=== PATIENT | male | born 1950 | race Caucasian/White ===

== ENCOUNTER 2017-06-06 08:43 | Inpatient (IN) | payer BC, OTHER ==
[2017-05-04 12:27] VITALS: BMI 31.0
--- NOTE | 2017-05-04 13:09 | PAT Medication Instructions ---
Service Date May 04, 2017. Current Home Medication List Amitriptyline Hcl (Elavil), 200 MG PO QPM Aspirin (Aspirin Ec), 81 MG PO QAM Cholecalciferol (Vitamin D3), 400 UNITS PO QAM Cyanocobalamin (Vitamin B12), 1,000 MCG PO QAM Digoxin (Digoxin), 250 MCG PO QAM Docusate Sodium (Docusate Sodium), 3 CAP PO QAM Fish Oil ([place]-3), 1,200 MG PO QAM Hydrocodon/Acetaminophen 5MG/300MG (Vicodin (5MG/300MG)), 1 TAB PO Q4H PRN for N Lisinopril (Zestril), 20 MG PO AM/HS Lorazepam (Ativan), 0.5 MG PO PRN Metoprolol Succ (Toprol Xl) (Toprol-Xl), 50 MG PO BID Psyllium (Metamucil), 1 DOSE PO QAM Red Yeast Rice Extract (Red Yeast Rice), 1,200 MG PO QAM Tadalafil (Cialis), 10 MG PO UD PRN for PRN Terazosin Hcl (Hytrin), 2 MG PO QPM Thiamine Hcl (Vitamin B1), 250 MG PO QAM [Folic Acid], 400 MG PO QAM Medication Instructions For Your Scheduled Surgery - Hold the following medications 2 weeks prior to surgery: Fish Oil ([place]-3), 1,200 MG PO QAM Red Yeast Rice Extract (Red Yeast Rice), 1,200 MG PO QAM - Hold the following medications 24 hours prior to surgery: Lisinopril (Zestril), 20 MG PO AM/HS-- do not take the night before or the morning of surgery - Hold the following medications the morning of surgery: Cholecalciferol (Vitamin D3), 400 UNITS PO QAM Cyanocobalamin (Vitamin B12), 1,000 MCG PO QAM Docusate Sodium (Docusate Sodium), 3 CAP PO QAM Psyllium (Metamucil), 1 DOSE PO QAM Thiamine Hcl (Vitamin B1), 250 MG PO QAM [Folic Acid], 400 MG PO QAM Tadalafil (Cialis), 10 MG PO UD PRN for PRN - Take the following medications the morning of surgery with a sip of water: Aspirin (Aspirin Ec), 81 MG PO QAM Digoxin (Digoxin), 250 MCG PO QAM Hydrocodon/Acetaminophen 5MG/300MG (Vicodin (5MG/300MG)), 1 TAB PO Q4H PRN (if needed, can be taken up to four hours before surgery) Lorazepam (Ativan), 0.5 MG PO PRN (if needed) Metoprolol Succ (Toprol Xl) (Toprol-Xl), 50 MG PO BID - Take the following medications as scheduled the night before surgery: Amitriptyline Hcl (Elavil), 200 MG PO QPM Hydrocodon/Acetaminophen 5MG/300MG (Vicodin (5MG/300MG)), 1 TAB PO Q4H PRN (if needed) Lorazepam (Ativan), 0.5 MG PO PRN (if needed) Metoprolol Succ (Toprol Xl) (Toprol-Xl), 50 MG PO BID Tadalafil (Cialis), 10 MG PO UD PRN for PRN (if needed) Terazosin Hcl (Hytrin), 2 MG PO QPM If you have any questions please call us at [phone] or [phone] or [phone]
[2017-05-04 13:56] LABS: BASO % 0.4 %; BASO ABS # 0.02 K/uL (0-0.2); EOS % 3.9 %; EOS ABS # 0.18 K/uL (0-0.5); HEMATOCRIT 43.5 % (42-52); IG# 0.02 K/uL (0.00-0.02); LYMPH % 19.1 %; LYMPH ABS # 0.87 K/uL (1.2-3.4); MEAN CELL VOLUME 84.5 fL (80-100); MEAN CORPUSCULAR HEMOGLOBIN 29.1 pg (25-34); MEAN CORPUSCULAR HGB CONC 34.5 g/dl (32-36); MEAN PLATELET VOLUME 9.4 fL (7.4-10.4); MONO % 9.9 %; MONO ABS # 0.45 K/uL (0.11-0.59); NEUT % 66.3 %; NEUT ABS # 3.02 K/uL (1.4-6.5); PLATELET COUNT 155 K/uL (130-400); RED CELL DISTRIBUTION WIDTH CV 13.4 % (11.5-14.5); RED CELL DISTRIBUTION WIDTH SD 41.4 fL (36.4-46.3); WHITE BLOOD COUNT 4.56 K/uL (4.8-10.8)
--- NOTE | 2017-05-04 14:07 | DIAGNOSTIC IMAGING REPORT ---
CHEST 2 VIEWS ROUTINE CLINICAL HISTORY: pat preoperative evaluation COMPARISON STUDY: No previous studies for comparison. FINDINGS: The bones soft tissues and hemidiaphragms are normal. The cardiomediastinal silhouette is normal. The lungs are clear. The pulmonary vasculature is normal. IMPRESSION: Negative chest. The above report was generated using voice recognition software. It may contain grammatical, syntax or spelling errors. Electronically signed by: Rich Weir M.D. 05/04/2017 2:05 PM Dictated Date/Time: 05/04/2017 1:56 PM
[2017-05-04 17:02] LABS: CALCIUM 8.8 mg/dl (8.5-10.1); CREATININE 0.93 mg/dl (0.60-1.40); POTASSIUM 4.3 mmol/L (3.5-5.1)
[2017-06-06] VITALS (8 sets, daily range): BP systolic 124–173; BP diastolic 55–95; PULSE 73–103; TEMP 36.5–37.1; O2SAT 93–98; Ht 185.4 cm; Wt 107.9 kg
[~2017-06-06] VITALS: Ht 185.4 cm; Wt 107.9 kg
[~2017-06-06 08:43] MED LIST: ACETAMINOPHEN 500 MG TAB PO SCH; AMT50 PO; ASPI81TA28 PO; CEFAZOLIN 2000MG IV PUSH 15 ML IV SCH; CHOL400T PO; CLINDAMYCIN 600 MG/54 ML D5W 54 ML IV SCH; CYAN100020 PO; CeleBREX 200 MG CAP PO SCH; DOCU100C31 PO; FOLIC ACID PO; GABAPENTIN 300 MG CAP PO SCH; GENERAL ORDER PROBLEM SCH; HYDR-3419 PO; HYT/2 PO; LACTATED RINGER'S 1000ML IV SCH; LISI-725 PO; LNX25 PO; LORA-741 PO; METO50TA8 PO; OMEG10007 PO; PSYL48.59 PO; REDCAP2 PO; TADA10TA PO; THIA250T7 PO
[2017-06-06] MEDS ORDERED: GABAPENTIN 300 MG CAP PO ONE (09:27)
[2017-06-06] MEDS ORDERED: SENN-65 PO (09:30)
[2017-06-06] MEDS ORDERED: NURSING VERBAL MED ORDER STA (09:30)
[2017-06-06] MEDS ORDERED: MIDAZOLAM HCL 1 MG/ML 2ML VIAL ONE (11:25)
[2017-06-06] MEDS ORDERED: FENTANYL CITRATE INJ 50 MCG/1 ML 2 ML VIAL ONE ×3 (11:25→13:55)
--- NOTE | 2017-06-06 11:52 | History & Physical Bridge Note ---
H&P Re-Evaluation Bridge Note: I have examined the patient, reviewed the History & Physical and in the interval since the performance of the History & Physical I have noted the following changes of clinical significance: No changes noted
[2017-06-06] MEDS ORDERED: BUPIVACAINE/EPINEPHRINE 0.5% MPF 1:200,000 30 ML VIAL ONE (11:54)
[2017-06-06] MEDS ORDERED: BACITRACIN 50000 UNIT VIAL ONE (11:54)
--- NOTE | 2017-06-06 11:55 | History and Physical ---
History & Physical Date Jun 06, 2017. Chief Complaint Back and leg pain History of Present Illness The patient is a 67 year old male with complaints of back and leg pain Additional History Hepatic Disease: No Endocrine Disorder: No Kidney Disease: No Hypertension: Yes Heart Disease: No Bleeding Tendencies: No Infectious Diseases: No Allergies Coded Allergies: Azithromycin (Unverified Allergy, Unknown, UNKNOWN REACTION, 06/06/17) PER CARDIO RECORDS Verapamil (Unverified Allergy, Unknown, UNKNOWN REACTION, 06/06/17) PER CARDIO RECORDS Home Medications Scheduled Amitriptyline Hcl (Elavil), 200 MG PO QPM Aspirin (Aspirin Ec), 81 MG PO QAM Cholecalciferol (Vitamin D3), 400 UNITS PO QAM Cyanocobalamin (Vitamin B12), 1,000 MCG PO QAM Digoxin (Digoxin), 250 MCG PO QAM Fish Oil ([place]-3), 1,200 MG PO QAM Lisinopril (Zestril), 20 MG PO AM/HS Metoprolol Succ (Toprol Xl) (Toprol-Xl), 50 MG PO BID Psyllium (Metamucil), 1 DOSE PO QAM Red Yeast Rice Extract (Red Yeast Rice), 1,200 MG PO QAM Senna/Docusate Sod (Senokot S), 2 TAB PO DAILY Terazosin Hcl (Hytrin), 2 MG PO QPM Thiamine Hcl (Vitamin B1), 250 MG PO QAM [Folic Acid], 400 MG PO QAM Scheduled PRN Hydrocodon/Acetaminophen 5MG/300MG (Vicodin (5MG/300MG)), 1 TAB PO Q4H PRN for N Lorazepam (Ativan), 0.5 MG PO Q6H PRN for Anxiety Tadalafil (Cialis), 10 MG PO UD PRN for PRN Physical Examination Skin: warm/dry, no rash Eyes: normal inspection, EOMI, sclerae normal ENT: normal ENT inspection, pharynx normal Head: normocephalic, atraumatic Neck: supple, no adenopathy, trachea midline Respiratory/Chest: lungs clear, normal breath sounds, no respiratory distress Cardiovascular: regular rate, rhythm, no edema, no murmur Abdomen / GI: normal bowel sounds, non tender Back: normal inspection Extremities: normal inspection, normal range of motion Neurologic/Psych: no motor/sensory deficits, alert, normal reflexes, oriented x 3 Diagnosis Lumbar spinal stenosis with neurogenic claudication Plan of Treatment L4-S1 decompression and fusion
[2017-06-06] MEDS ORDERED: EpHEDrine SULFATE INJ 50 MG/ML AMP IV PRN (12:00)
[2017-06-06] MEDS ORDERED: FENTANYL CITRATE INJ 50 MCG/1 ML 2 ML VIAL IV PRN (12:00)
[2017-06-06] MEDS ORDERED: MoRPHine SULFATE 10 MG/ML CARP/VIAL IV PRN (12:00)
[2017-06-06] MEDS ORDERED: ONDANSETRON INJ 2 MG/ML 2 ML VIAL IV PRN ×2 (12:00→14:45)
[2017-06-06] MEDS ORDERED: ATROPINE SULFATE 0.1 MG/ML 5ML SYR IV PRN (12:00)
[2017-06-06] MEDS ORDERED: HYDROmorphone INJ 2 MG/ML SYR/VIAL ONE ×2 (12:36→14:19)
[2017-06-06] MEDS ORDERED: DEXAMETHASONE SOD INJ 4 MG/ML VIAL ONE (13:28)
[2017-06-06] MEDS ORDERED: PROPOFOL IV EMULSION 10 MG/ML 20 ML VIAL ONE (13:28)
[2017-06-06] MEDS ORDERED: ONDANSETRON INJ 2 MG/ML 2 ML VIAL ONE ×2 (13:28→14:24)
[2017-06-06] MEDS ORDERED: LIDOCAINE HCL 2% 2 ML VIAL (20MG/ML) ONE (13:28)
[2017-06-06] MEDS ORDERED: PHENYLEPHRINE 100MCG/ML 5ML SYR ONE ×2 (14:24→14:46)
[2017-06-06] MEDS ORDERED: NEOSTIGMINE METHYLSULFATE 1 MG/ML 10ML VIAL ONE (14:24)
[2017-06-06] MEDS ORDERED: EpHEDrine SULFATE 50MG/5ML SYR ONE (14:24)
[2017-06-06] MEDS ORDERED: GLYCOPYRROLATE INJ 0.2 MG/ML VIAL ONE (14:24)
[2017-06-06] MEDS ORDERED: VASOPRESSIN 20 UNIT/ML VIAL ONE (14:24)
[2017-06-06] MEDS ORDERED: FLOSEAL HEMOSTATIC MATRIX 10ML TOP ONE (14:38)
[2017-06-06] MEDS ORDERED: KETOROLAC TROMETHAMINE 30 MG/ML VIAL ONE (14:41)
[2017-06-06] MEDS ORDERED: SODIUM CHLORIDE 0.9% 1000ML 1,000 ML IV SCH ×2 (14:43→16:30)
--- NOTE | 2017-06-06 14:43 | [facility] Operative Report ---
Operative Report Operative Date Jun 06, 2017. Pre-Operative Diagnosis Lumbar spinal stenosis with neurogenic claudication Post-Operative Diagnosis Same Procedure(s) Performed 1. Lumbar decompression medial facetectomies foraminotomies L3-4 L4-5 L5-S1. #2 posterior spinal fusion L4-5 L5-S1. #3 placement posterior segmental instrumentation L4-5 L5-S1. #4 interbody fusion L4-5 L5-S1. #5 placement of titanium cages 10 x 26 at L4-5 and 11 x 26 at L5-S1. #6 Surgeon Belia Food Storeroom Clerk Surgeon(s) Rangel Estimated Blood Loss 400 Findings Severe spinal stenosis Description of Procedure Patient was met with preoperatively case discussed all questions addressed. After informed consent obtained patient was taken to the operative suite underwent intubation and placed in a prone position the Star table on top of the Anthony frame. All bony prominences well-padded eyes inspected to ensure no external pressure placed upon. This point the lumbar spine was prepped and draped in the normal sterile fashion. Sharp dissection with the assistance of Bovie cautery was performed down to and exposing the lamina and transverse processes of L4-L5 and sacral ala bilaterally. From caudocephalad fashion complete laminectomy of L5 L4 and partial laminectomy of L3 was performed addressing severe lateral recess and foraminal disease. Pedicle screws were then placed in L4 L5-S1 levels bilaterally with the assistance of fluoroscopy and the properly sized garrick placed. Through a transforaminal approach on left complete discectomy L5-S1 was performed endplates created carotid to subcortical bleeding bone and a 11 x 26 mm titanium cage filled with ostium bone graft tapped in position. Then proceeded to L4-5 and again through a transforaminal approach and left complete discectomy performed endplates created to subcortical bleeding bone and a 10 x 26 mm titanium cage filled with ostium bone graft tapped in position. The rods were then locked in final position bilaterally. The transverse processes of L5 for L5 and sacral ala burred to subcortical bleeding bone. Infuse collagen sponge master graft and locally harvested Good's allograft placed in the posterior lateral gutters. A 15 round JUAN drain inserted. Incision was then closed with 1 Vicryl fascia 2-0 Vicryl 17 C4 Vicryl for fast closure Steri-Strips sterile dressings placed. Patient will continue PACU stable discrete please note Petty Multani was present throughout the entire procedure involved in patient positioning complex portions of the surgery and fashion closure. I attest to the content of the Intraoperative Record and any orders documented therein. Any exceptions are noted below.
[2017-06-06] MEDS ORDERED: PROMETHAZINE HCL INJ 12.5 MG in SODIUM CHLORIDE 0.9% 50ML 50 ML IV PRN (14:45)
[2017-06-06] MEDS ORDERED: DO NOT ADMINISTER FLU VACCINE PRN (14:45)
[2017-06-06] MEDS ORDERED: LORAZEPAM 0.5 MG TAB PO PRN (14:45)
[2017-06-06] MEDS ORDERED: ACETAMINOPHEN 500 MG TAB PO PRN (14:45)
[2017-06-06] MEDS ORDERED: LORAZEPAM INJ 0.5 MG in SYRINGE 0 ML IV PRN (14:45)
[2017-06-06] MEDS ORDERED: ACETAMINOPHEN IV 100 ML IV PRN (14:45)
[2017-06-06] MEDS ORDERED: ALUMINUM/MAGNESIUM SUSP 30 ML UDC PO PRN (14:45)
[2017-06-06] MEDS ORDERED: SOD PHOSPHATE/SOD BIPHOSPHATE ENEMA 132 ML BTL PR PRN (14:45)
[2017-06-06] MEDS ORDERED: FAMOTIDINE 20 MG TAB PO PRN (14:45)
[2017-06-06] MEDS ORDERED: hydrOXYzine HCL 25 MG TAB PO PRN (14:45)
[2017-06-06] MEDS ORDERED: METOCLOPRAMIDE HCL INJ 5 MG/ML 2 ML VIAL IV PRN (14:45)
[2017-06-06] MEDS ORDERED: NALOXONE HCL 0.4 MG/1 ML VIAL/CARP IV PRN ×2 (14:45)
[2017-06-06] MEDS ORDERED: MAGNESIUM HYDROXIDE SUSP 30 ML UDC PO PRN (14:45)
[2017-06-06] MEDS ORDERED: DO NOT ADMINISTER PNEUMOCOCCAL VACCINE PRN (14:45)
[2017-06-06] MEDS ORDERED: BISACODYL 10 MG SUPP PR PRN (14:45)
[2017-06-06] MEDS ORDERED: PHENYLEPHRINE HCL INJ 10 MG/ML VIAL ONE (14:47)
--- NOTE | 2017-06-06 14:52 | DIAGNOSTIC IMAGING REPORT ---
LUMBAR SPINE 2 OR 3 VIEW CLINICAL HISTORY: L4-S1 DECOMPRESSION/FUSION COMPARISON STUDY: No previous studies for comparison. Fluoroscopy time: 24.1 seconds. FINDINGS: 2 fluoroscopic images demonstrate L4-L5 and L5-S1 discectomies with interbody spacer placement. A posterior decompression is noted. There are bilateral pedicle screws with interconnecting rods at the L4, L5 and S1 levels. The hardware is intact. There are no unexpected radiopaque foreign bodies. IMPRESSION: Fluoroscopic images demonstrating L4-L5 and L5-S1 discectomies and L4-S1 bilateral pedicle screw fusion. Electronically signed by: Lucas Mcqueen M.D. 06/06/2017 2:51 PM Dictated Date/Time: 06/06/2017 2:50 PM
[2017-06-06] MEDS: HYDROmorphone HCL 0.5MG/ML 50 ML CASSETTE IV PRN ×3 (15:43→23:15)
--- NOTE | 2017-06-06 15:47 | Anesthesiology Progress Note ---
Anesthesia Post Op Note Date & Time Jun 06, 2017 at 15:47 Vital Signs Pain Intensity: 0 Vital Signs Past 12 Hours Date Time Temp Pulse Resp B/P (MAP) Pulse Ox O2 Delivery O2 Flow Rate FiO2 06/06/17 15:10 36.4 63 10 81/44 (57) 94 Oxymask 10 06/06/17 09:33 37.1 84 18 162/95 96 Room Air Notes Mental Status: alert / awake / arousable, participated in evaluation Pt Amnestic to Procedure: Yes Nausea / Vomiting: adequately controlled Pain: adequately controlled Airway Patency, RR, SpO2: stable & adequate BP & HR: stable & adequate Hydration State: stable & adequate Anesthetic Complications: no major complications apparent
--- NOTE | 2017-06-06 17:06 | Medical Consult ---
Consultation Date of Consultation: Jun 06, 2017. Attending Physician: Luis Daniel Celaya D.O. Reason for Consultation: post op medical management History of Present Illness This is a 67yo M with a PMH of HTN, paroxysmal A Fib, HLD, BPH, depression and lumbar stenosis with neurogenic claudication who is POD #0 s/p L4-S1 decompression fusion by Dr. Celaya. Patient is doing well post-operatively. States that back pain is a 1/10. Denies any fever, chills, lightheadedness, headache, visual changes, sore throat, CP, SOB, abdominal pain, nausea, vomiting , dysuria or LE swelling. PCP is Dr. Duffy of [facility] in [place]. Has history of paroxysmal A Fib for which he takes digoxin and Toprol. Denies personal or family history of DM II, heart disease or DVT/PE. Past Medical/Surgical History Medical Problems: (1) Anxiety Status: Chronic (2) Depression Status: Chronic (3) HLD (hyperlipidemia) Status: Chronic (4) HTN (hypertension) Status: Chronic (5) Lumbar stenosis with neurogenic claudication Status: Chronic (6) Paroxysmal atrial fibrillation Status: Chronic Surgical Problems: (1) H/O exploratory laparotomy Status: Resolved (2) Hx of appendectomy Status: Resolved Family History No known family history of HTN, DM II or CKD. Social History Smoking Status: Never Smoker Alcohol Use: occasionally (1x/month) Marital Status: Housing Status: lives with significant other Allergies Coded Allergies: Azithromycin (Unverified Allergy, Unknown, UNKNOWN REACTION, 06/06/17) PER CARDIO RECORDS Verapamil (Unverified Allergy, Unknown, UNKNOWN REACTION, 06/06/17) PER CARDIO RECORDS Home Medications Reported Home Medications Medications Dose Route/Sig Max Daily Dose Days Date Category Senokot S (Senna/Docusate Sodium) 1 Tab Tab 2 Tab PO DAILY 06/06/17 Reported [place]-3 (Fish Oil) 1 Ea Cap 1,200 Mg PO QAM 05/04/17 Reported Ativan (Lorazepam) 0.5 Mg Tab 0.5 Mg PO Q6H PRN 05/04/17 Reported Cialis (Tadalafil) 10 Mg Tab 10 Mg PO UD PRN 05/04/17 Reported Vicodin (5MG/300MG) (Hydrocodon/Acetaminophen 5MG/300MG) 1 Tab Tab 1 Tab PO Q4H PRN 05/04/17 Reported Vitamin D3 (Cholecalciferol) 400 Unit Tab 400 Units PO QAM 05/04/17 Reported Vitamin B1 (Thiamine Hcl) 250 Mg Tab 250 Mg PO QAM 05/04/17 Reported [Folic Acid] 400 Mg PO QAM 05/04/17 Reported Toprol-Xl (Metoprolol Succinate) 50 Mg Tabcr 50 Mg PO BID 05/04/17 Reported Zestril (Lisinopril) 20 Mg Tab 20 Mg PO AM/HS 05/04/17 Reported Digoxin 0.25 Mg Tab 250 Mcg PO QAM 05/04/17 Reported Elavil (Amitriptyline HCl) 50 Mg Tab 200 Mg PO QPM 05/04/17 Reported Hytrin (Terazosin HCl) 2 Mg Cap 2 Mg PO QPM 05/04/17 Reported Aspirin Ec (Aspirin) 81 Mg Tab 81 Mg PO QAM 05/04/17 Reported Vitamin B12 (Cyanocobalamin) 1,000 Mcg Tab 1,000 Mcg PO QAM 05/04/17 Reported Metamucil (Psyllium) 48.57 % Pow 1 Dose PO QAM 05/04/17 Reported Red Yeast Rice (Red Yeast Rice Extract) 600 Mg Cap 1,200 Mg PO QAM 05/04/17 Reported Current Inpatient Medications Current Inpatient Medications Medications (Trade) Dose Ordered Sig/[place] Route Start Time Stop Time Status Last Admin Dose Admin Lactated Ringer's 1,000 ml @ 15 mls/hr Q24H IV 06/06/17 06:00 06/07/17 05:59 06/06/17 09:52 15 MLS/HR Cefazolin Sodium 15 ml @ 3.75 mls/ min PREOP IV 06/06/17 06:00 06/06/17 18:00 06/06/17 12:09 3.75 MLS/MIN Acetaminophen (Tylenol Tab) 1,000 mg PREOP PO 06/06/17 06:00 06/06/17 18:00 06/06/17 09:53 1,000 MG Celecoxib (CeleBREX CAP) 200 mg PREOP PO 06/06/17 06:00 06/06/17 18:00 06/06/17 09:52 200 MG Promethazine HCl 12.5 mg/Sodium Chloride 50.5 ml @ 202 mls/hr Q6H PRN IV 06/06/17 14:45 07/06/17 14:44 Ondansetron HCl (Zofran Inj) 4 mg Q6H PRN IV 06/06/17 14:45 07/06/17 14:44 Metoclopramide HCl (Reglan Inj) 10 mg Q6H PRN IV 06/06/17 14:45 07/06/17 14:44 Lorazepam (Ativan Tab) 0.5 mg Q8H PRN PO 06/06/17 14:45 07/06/17 14:44 Lorazepam 0.5 mg/ Syringe 0.25 ml @ 1 mls/min Q8H PRN IV 06/06/17 14:45 07/06/17 14:44 Pneumococcal Polysaccharide Vaccine 1 ea PRN PRN N/A 06/06/17 14:45 07/06/17 14:44 Influenza Virus Vacc Triv Types A&B 1 ea PRN PRN N/A 06/06/17 14:45 07/06/17 14:44 Polyethylene (Miralax Powder Packet) 17 gm Q6 PO 06/08/17 06:00 07/08/17 05:59 Bisacodyl (Dulcolax Supp) 10 mg DAILY PRN [place] 06/06/17 14:45 07/06/17 14:44 Magnesium Hydroxide (Milk Of Magnesia Susp) 30 ml DAILY PRN PO 06/06/17 14:45 07/06/17 14:44 Hydromorphone HCl (Dilaudid Inj) 0.5-1mg prn moder... Q3H PRN IV 06/07/17 06:00 06/21/17 05:59 Oxycodone HCl (Roxicodone Immediate Rel Tab) 5-10mg prn moderate to sev... Q4H PRN PO 06/07/17 06:00 06/21/17 05:59 Cefazolin Sodium 2000 mg/Syringe 15 ml @ 3.75 mls/ min Q8H IV 06/06/17 18:00 06/07/17 02:03 Sodium Chloride 1,000 ml @ 150 mls/hr Q6H40M IV 06/06/17 16:30 07/06/17 16:29 Acetaminophen (Tylenol Tab) 1,000 mg Q8H PRN PO 06/06/17 14:45 07/06/17 14:44 Acetaminophen 100 ml @ 400 mls/hr Q8H PRN IV 06/06/17 14:45 07/06/17 14:44 Naloxone HCl (Narcan Inj) 0.1 mg Q5M PRN IV 06/06/17 14:45 07/06/17 14:44 Senna/Docusate Sodium (Senokot S Tab) 2 tab HS PO 06/06/17 21:00 07/06/17 20:59 Sodium Biphosphate/ Sodium Phosphate (Fleet Enema) 132 ml ONE PRN [place] 06/06/17 14:45 07/06/17 14:44 Hydroxyzine HCl (Vistaril Tab) 25 mg Q8H PRN PO 06/06/17 14:45 07/06/17 14:44 Al Hydroxide/Mg Hydroxide (Maalox Susp) 30 ml Q6H PRN PO 06/06/17 14:45 07/06/17 14:44 Famotidine (Pepcid Tab) 20 mg Q12 PRN PO 06/06/17 14:45 07/06/17 14:44 Diphenhydramine HCl (Benadryl Cap) 25 mg Q6H PRN PO 06/06/17 14:45 07/06/17 14:44 Miscellaneous Information (Discontinue PROGRAM DIRECTOR/MORNING SHOW HOST) 1 ea ONE ONCE N/A 06/07/17 06:00 06/07/17 06:01 Naloxone HCl (Narcan Inj) 0.1 mg Q5M PRN IV 06/06/17 14:45 06/07/17 06:01 Hydromorphone HCl (Dilaudid Lead Sql Developer) 25 mg PRN PRN IV 06/06/17 14:45 06/07/17 06:01 06/06/17 16:09 25 MG Sodium Chloride 1,000 ml @ 15 mls/hr Q24H IV 06/06/17 14:43 06/07/17 06:01 Amitriptyline HCl (Elavil Tab) 200 mg QPM PO 06/06/17 21:00 07/06/17 20:59 Aspirin (Ecotrin Tab) 81 mg QAM PO 06/07/17 09:00 07/07/17 08:59 Digoxin (Lanoxin Tab) 0.25 mg QAM PO 06/07/17 09:00 07/07/17 08:59 Lisinopril (Zestril Tab) 20 mg QPM PO 06/06/17 21:00 07/06/17 20:59 Metoprolol Succinate (Toprol Xl Tab) 50 mg BID PO 06/06/17 21:00 07/06/17 20:59 Terazosin HCl (Hytrin Cap) 2 mg QPM PO 06/06/17 21:00 07/06/17 20:59 Review of Systems Ten systems reviewed and negative except as noted in the HPI. Physical Exam Date Time Temp Pulse Resp B/P (MAP) Pulse Ox O2 Delivery O2 Flow Rate FiO2 06/06/17 16:40 36.5 73 17 124/55 (78) 97 Nasal Cannula 4.0 06/06/17 15:57 77 15 97 06/06/17 15:57 77 15 06/06/17 15:56 101/56 06/06/17 15:52 71 13 96 06/06/17 15:52 72 13 06/06/17 15:51 36.5 06/06/17 15:50 68 16 06/06/17 15:50 68 16 94 06/06/17 15:46 94/50 06/06/17 15:45 69 12 93 06/06/17 15:45 70 12 06/06/17 15:41 84/40 06/06/17 15:40 66 14 95 06/06/17 15:40 66 06/06/17 15:36 87/47 06/06/17 15:35 68 06/06/17 15:35 69 14 96 06/06/17 15:31 93/51 06/06/17 15:30 68 10 96 06/06/17 15:30 68 10 06/06/17 15:26 91/51 06/06/17 15:25 67 14 95 06/06/17 15:25 67 14 06/06/17 15:21 92/49 06/06/17 15:20 66 9 96 06/06/17 15:20 66 9 06/06/17 15:16 92/45 06/06/17 15:15 64 7 06/06/17 15:15 64 7 95 06/06/17 15:12 83/43 06/06/17 15:10 63 7 06/06/17 15:10 63 7 81/44 95 06/06/17 15:10 36.4 63 10 81/44 (57) 94 Oxymask 10 06/06/17 09:33 37.1 84 18 162/95 96 Room Air General Appearance: WD/WN, no apparent distress, + pertinent finding (resting comfortably ) Head: normocephalic, atraumatic Eyes: normal inspection, PERRL, sclerae normal ENT: normal ENT inspection, hearing grossly normal, pharynx normal (moist mucous membranes ) Neck: supple, thyroid normal, trachea midline Respiratory/Chest: chest non-tender, lungs clear, normal breath sounds, no respiratory distress, no accessory muscle use Cardiovascular: regular rate, rhythm, normal peripheral pulses, + systolic murmur Abdomen/GI: non tender, soft, no organomegaly Genitourinary - Male: + pertinent finding (hall) Back: normal inspection, + pertinent finding (Lumbosacral surgical dressing in place. Clean, dry, intact. Drain visualized. ) Extremities/Musculoskelatal: normal inspection, no calf tenderness, no pedal edema, + pertinent finding (SCDs) Neurologic/Psych: no motor/sensory deficits, alert, normal mood/affect, oriented x 3 Skin: normal color, warm/dry Laboratory Results Pertinent pre-op lab work: Item Value Date Time White Blood Count 4.56 K/uL L 05/04/17 1322 Hemoglobin 15.0 g/dL 05/04/17 1322 Hematocrit 43.5 % 05/04/17 1322 Sodium Level 139 mmol/L 05/04/17 1322 Potassium Level 4.3 mmol/L 05/04/17 1322 Chloride Level 106 mmol/L 05/04/17 1322 Carbon Dioxide Level 28 mmol/L 05/04/17 1322 Blood Urea Nitrogen 16 mg/dl 05/04/17 1322 Creatinine 0.93 mg/dl 05/04/17 1322 Estimated GFR (Non- 85.8 05/04/17 1322 Random Glucose 102 mg/dl H 05/04/17 1322 Calcium Level 8.8 mg/dl 05/04/17 1322 Assessment & Plan This is a 67yo M with a PMH of HTN, paroxysmal A Fib, HLD, depression, anxiety and lumbar stenosis with neurogenic claudication who is POD #0 s/p L4-S1 decompression fusion by Dr. Celaya. Lumbar stenosis s/p decompression fusion: -L4-S1 decompression and fusion by Dr. Celaya. -Doing well post-operatively -Per ortho for pain control, wound care, anticoagulation and activities -Monitor H&H, continue incentive spirometry, PT/OT when appropriate Paroxysmal A Fib: -Regular rate and rhythm on exam -Cont home dose digoxin and Toprol HTN: -Slightly elevated 2/2 pain -Cont home lisinopril, toprol, terazosin Depression, anxiety: -Cont amitriptyline -Ativan PRN HLD: -Red Yeast rice extract held PCP: Dr. Duffy, [facility] in [place] Dispo: Per ortho Patient seen in collaboration with Dr. Underwood. Please see addendum. Thank you for this consultation. We will follow the patient with you during their hospital stay. You can reach a member of the [facility] Hospitalist Team 30/08 via pager @ [phone]. Attending Addendum Pt was seen and examined. Agreed with Tessa BURGOS exam, assessment and plan. 67- year-old male PMH hx of Afib, HTN, DLP, status post L4-S1 decompression and fusion done today by Dr. Celaya. No post op complications. Denies any chest pain , palpitation, dizziness and sob. Continue monitor H/H and incentive spirometry. Pain management as per ortho.PT/OT and fall precaution. Will continue medical management during his hospital course. MD Kj
[2017-06-06] MEDS: CEFAZOLIN IV 2,000 MG in SYRINGE 0 ML IV SCH (18:35)
[2017-06-06] MEDS: AMITRIPTYLINE HCL 100 MG TAB PO SCH (21:09)
[2017-06-06] MEDS: METOPROLOL SUCC 50MG EXT REL TAB PO SCH (21:10)
[2017-06-06] MEDS: LISINOPRIL 20 MG TAB PO SCH (21:10)
[2017-06-06] MEDS: DOCUSATE SODIUM/SENNA 50/8.6MG TAB PO SCH (21:10)
[2017-06-07] VITALS (8 sets, daily range): BP systolic 110–174; BP diastolic 60–80; PULSE 84–102; TEMP 36.4–37.2; O2SAT 92–96
[2017-06-07] MEDS ORDERED: COUGH DROP (SUGAR FREE) LOZ 24 LOZ/1 BOX LOZ ONE (00:25)
[2017-06-07] MEDS ORDERED: COUGH DROP (SUGAR FREE) LOZ 24 LOZ/1 BOX LOZ PRN (00:45)
[2017-06-07] MEDS: CEFAZOLIN IV 2,000 MG in SYRINGE 0 ML IV SCH (02:30)
[2017-06-07] MEDS ORDERED: OXYCODONE HCL IR 5 MG TAB (IMMEDIATE RELEASE) PO PRN (06:00)
[2017-06-07] MEDS ORDERED: NURSING VERBAL MED ORDER ONE (06:00)
[2017-06-07] MEDS ORDERED: DC PCA ONE (06:00)
[2017-06-07] MEDS ORDERED: HYDROmorphone INJ 0.5 MG/0.5 ML SYR IV PRN (06:00)
[2017-06-07 06:01] LABS: BASO % 0.1 %; BASO ABS # 0.01 K/uL (0-0.2); HEMOGLOBIN 12.1 g/dL (14.0-18.0); IG# 0.03 K/uL (0.00-0.02); LYMPH % 4.2 %; LYMPH ABS # 0.46 K/uL (1.2-3.4); MEAN CELL VOLUME 83.9 fL (80-100); MEAN CORPUSCULAR HEMOGLOBIN 28.2 pg (25-34); MEAN CORPUSCULAR HGB CONC 33.6 g/dl (32-36); MEAN PLATELET VOLUME 9.2 fL (7.4-10.4); MONO % 6.3 %; MONO ABS # 0.69 K/uL (0.11-0.59); NEUT % 89.1 %; NEUT ABS # 9.75 K/uL (1.4-6.5); PLATELET COUNT 157 K/uL (130-400); RED CELL DISTRIBUTION WIDTH CV 13.2 % (11.5-14.5); RED CELL DISTRIBUTION WIDTH SD 39.5 fL (36.4-46.3); WHITE BLOOD COUNT 10.94 K/uL (4.8-10.8)
[2017-06-07 06:36] LABS: CALCIUM 7.6 mg/dl (8.5-10.1); CREATININE 1.16 mg/dl (0.60-1.40); POTASSIUM 4.6 mmol/L (3.5-5.1)
--- NOTE | 2017-06-07 07:37 | Anesthesiology Progress Note ---
Anesthesia Post Op Note Date & Time June 07, 2017 at 07:33 Vital Signs Pain Intensity: 0.0 Vital Signs Past 12 Hours Date Time Temp Pulse Resp B/P (MAP) Pulse Ox O2 Delivery O2 Flow Rate FiO2 06/07/17 02:38 37.2 102 16 131/63 (85) 96 Room Air 06/07/17 00:00 Room Air 06/06/17 22:52 36.8 100 17 140/67 (91) 93 Room Air 06/06/17 21:05 103 146/80 (102) Notes Mental Status: alert / awake / arousable, participated in evaluation Pt Amnestic to Procedure: Yes Nausea / Vomiting: adequately controlled Pain: adequately controlled Airway Patency, RR, SpO2: stable & adequate BP & HR: stable & adequate Hydration State: stable & adequate Anesthetic Complications: no major complications apparent
[2017-06-07] MEDS: METOPROLOL SUCC 50MG EXT REL TAB PO SCH ×2 (08:38→20:56)
[2017-06-07] MEDS: DIGOXIN 0.25 MG TAB PO SCH (08:38)
[2017-06-07] MEDS: ASPIRIN 81 MG ECTAB PO SCH (08:38)
[2017-06-07] MEDS ORDERED: RXC5 PO (11:03)
--- NOTE | 2017-06-07 11:03 | Discharge Instructions ---
Discharge Instructions Date of Service June 07, 2017. Admission Reason for Admission: Lumbar Spinal Stenosis Discharge Discharge Diagnosis / Problem: lumbar stenosis Discharge Goals Goal(s): Improve function Activity Recommendations Activity Limitations: per Instructions/Follow-up section . Instructions / Follow-Up Instructions / Follow-Up ACTIVITY RECOMMENDATIONS: SELF CARE INSTRUCTIONS AFTER THORACIC/LUMBAR FUSIONS 1. You may walk to your tolerance. It is good exercise for your legs and back. Expect some back and intermittent leg aches and pains. 2. You may perform "counter-top" level activities (make a sandwich, meg with a project, etc.). 3. No bending or lifting of more than 10 pounds or back twisting of any nature (roll like a log when turning in bed). 4. You may ride in a car for 20-30 minutes at a time. No driving until after your first visit with your doctor. 5. Frequent changes of position and restricting sitting to 30 minutes at a time will help limit the amount of back spasms and stiffness you may experience. 6. You may discontinue the use of ambulatory aids (cane, crutches, etc.) once your strength and confidence allow. 7. You may interactive producer the shower and let water strike your incision when you arrive home at least once daily. Do not take a tub bath, sit in a hot tub or go into a swimming pool until after your first recheck in the office. SPECIAL CARE INSTRUCTIONS: VERY IMPORTANT TO READ AND REVIEW A. Your surgical incision has been closed with a cosmetic suture under the skin that will dissolve in about 6 weeks. In 14 days, you can use a pair of clean scissors and cut the suture that is left outside of the skin at the ends of your incision. 1. The small skin tapes can be removed 7 days after surgery if they have not fallen off by that point. 2. You may keep the wound open to air as much as possible to promote healing after post-op day number 5 unless told otherwise by your doctor. 3. If you think the wound looks like it is becoming infected (redness or worsening drainage) and/or you are experiencing fever, chill or worsening back pain and muscle spasms, contact the office so that we may evaluate you as soon as possible. B. Complications are uncommon, but please contact us if you have any signs or symptoms of: 1. wound infection (fever higher than 102.5 degrees F, redness, separation of wound, drainage, or increasing pain from the incision) 2. blood clots in legs (pain, swelling, redness and warmth in legs) 3. urinary tract infection (fever higher than 102.5 degrees F, burning upon urination or increased frequency of urination) 4. nerve problems (inability to walk on your toes or heels, numbness, loss of bowel or bladder control) 5. any other symptoms that concern you C. Please call the office at if you have any concerns or questions about your operation or recovery. D. No smoking! Smoking drastically decreases the chance of a solid fusion. E. Do not take any anti-inflammatory medications (Indocin, Advil, Motrin, Aspirin, Naprosyn, etc.) as these may inhibit the chance of a solid fusion. Tylenol is okay to take for pain. MANAGING PAIN AFTER SPINAL SURGERY 1. Narcotic medication is intended for short-term use and will be provided for surgical pain. Surgical pain usually lasts for a period of 4-6 weeks. Narcotic medication includes Percocet, Vicodin, Darvocet, Tylenol #3 or Lortab. 2. Longer-term pain is more appropriately treated with non-narcotic medication such as Tylenol ES. 3. Muscle spasm is not appropriately treated with narcotics. Muscle relaxers such as Soma, Flexeril or Skelaxin can be used along with Tylenol ES. 4. Remember that we all live with some "aches and pains". This is not unusual or uncommon after an injury or as we get older. a. Back pain is expected and may include muscle spasms for 4 to 6 weeks after surgery. The pain should gradually improve. If the pain worsens for no apparent reason, please contact the office. b. Intermittent leg pain may also be experienced and should not be concerned about unless it worsens for no apparent reason. If so, please contact the office. 5. We will provide appropriate medication within the normal guidelines of their prescribed use. We will also be very cautious and aware of potential abuse and extended duration of patients' medication needs. a. Pain medications are for your comfort and to assist with sleep and rest so that the tissue can heal. They are not provided in order to return to normal activity and should not be used through the day. To do so or worsening pain at night can result from ongoing tissue damage and development of tolerance to the prescribed medicine. 6. Please allow 2-3 days to process refills. Prescriptions will not be mailed but must be picked up at the office. FOLLOW UP VISIT: Keep your scheduled follow-up appointment. Any questions, please call the office at . Current Hospital Diet Patient's current hospital diet: Regular Diet Discharge Diet Recommended Diet: Regular Diet Procedures Procedures Performed: 1. Lumbar decompression medial facetectomies foraminotomies L3-4 L4-5 L5-S1. #2 posterior spinal fusion L4-5 L5-S1. #3 placement posterior segmental instrumentation L4-5 L5-S1. #4 interbody fusion L4-5 L5-S1. #5 placement of titanium cages 10 x 26 at L4-5 and 11 x 26 at L5-S1. #6 Pending Studies Studies pending at discharge: no Medical Emergencies . Who to Call and When: Medical Emergencies: If at any time you feel your situation is an emergency, please call 911 immediately. . Non-Emergent Contact Non-Emergency issues call your: Primary Care Provider . "Provider Documentation" section prepared by Luis Daniel Celaya. .
[2017-06-07] MEDS ORDERED: KETOROLAC TROMETHAMINE 15 MG/ML VIAL IV. PRN (11:15)
--- NOTE | 2017-06-07 12:43 | Progress Note ---
Internal Med Progress Note Date of Service: June 07, 2017. Provider Documentation: SUBJECTIVE: The patient was seen and examined He is a status post L4-S1 decompression and fusion Minimal symptoms at operation site but denies any other symptoms Has been getting physical therapy and may be going home today OBJECTIVE: Vital Signs-as noted below Exam: General-no distress at rest Eyes-normal ENT-normal Neck-supple Lungs-clear to auscultate bilaterally Heart-irregular, no murmur appreciated Abdomen-benign, soft, nontender, bowel sounds present Extremities-trace edema bilaterally Neuro-alert, awake and oriented 3 No focal neuro deficit Lab data as noted below. ASSESSMENT & PLAN: This is a 67yo M with a PMH of HTN, paroxysmal A Fib, HLD, depression, anxiety and lumbar stenosis with neurogenic claudication who is POD #0 s/p L4-S1 decompression fusion by Dr. Celaya. Lumbar stenosis s/p decompression fusion: -L4-S1 decompression and fusion by Dr. Celaya. -Doing well post-operatively -Per ortho for pain control, wound care, anticoagulation and activities -Monitor H&H, continue incentive spirometry, PT/OT when appropriate -No significant symptoms reported and labs were unremarkable Paroxysmal A Fib: -Regular rate and rhythm on exam -Cont home dose digoxin and Toprol -Has not been on any anticoagulation for A. fib except aspirin -Sees his bi technical lead routinely -We will not initiate any anticoagulation now HTN: -Slightly elevated 2/2 pain -Cont home lisinopril, toprol, terazosin -Remains controlled Depression, anxiety: -Cont amitriptyline -Ativan PRN HLD: -Red Yeast rice extract held DVT PROPHYLAXIS As per [place] PCP: Dr. Duffy, [facility] in [place] Dispo: Per ortho DISPOSITION Medically stable to be discharged Vital Signs: Date Time Temp Pulse Resp B/P (MAP) Pulse Ox O2 Delivery O2 Flow Rate FiO2 06/07/17 10:05 97 94 06/07/17 08:38 84 06/07/17 08:34 92 Room Air 06/07/17 08:15 Room Air 06/07/17 07:42 36.7 84 12 110/60 (77) 92 06/07/17 02:38 37.2 102 16 131/63 (85) 96 Room Air 06/07/17 00:00 Room Air 06/06/17 22:52 36.8 100 17 140/67 (91) 93 Room Air 06/06/17 21:05 103 146/80 (102) 06/06/17 19:11 36.8 98 17 145/67 (93) 95 Room Air 06/06/17 18:47 151/65 (93) 06/06/17 18:17 36.9 100 17 173/70 (104) 97 Nasal Cannula 2.0 06/06/17 17:10 36.5 83 17 156/63 (94) 98 Nasal Cannula 4.0 06/06/17 16:40 36.5 73 17 124/55 (78) 97 Nasal Cannula 4.0 06/06/17 16:15 Nasal Cannula 4.0 06/06/17 16:15 Nasal Cannula 4.0 06/06/17 15:57 77 15 97 06/06/17 15:57 77 15 06/06/17 15:56 101/56 06/06/17 15:52 71 13 96 06/06/17 15:52 72 13 06/06/17 15:51 36.5 06/06/17 15:50 68 16 06/06/17 15:50 68 16 94 06/06/17 15:46 94/50 06/06/17 15:45 69 12 93 06/06/17 15:45 70 12 06/06/17 15:41 84/40 06/06/17 15:40 66 14 95 06/06/17 15:40 66 06/06/17 15:36 87/47 06/06/17 15:35 68 06/06/17 15:35 69 14 96 06/06/17 15:31 93/51 06/06/17 15:30 68 10 96 06/06/17 15:30 68 10 06/06/17 15:26 91/51 06/06/17 15:25 67 14 95 06/06/17 15:25 67 14 06/06/17 15:21 92/49 06/06/17 15:20 66 9 96 06/06/17 15:20 66 9 18 15:16 92/45 06/06/17 15:15 64 7 06/06/17 15:15 64 7 95 06/06/17 15:12 83/43 06/06/17 15:10 63 7 06/06/17 15:10 63 7 81/44 95 06/06/17 15:10 36.4 63 10 81/44 (57) 94 Oxymask 10 Lab Results: Results Past 24 Hours Test 06/07/17 05:22 Range/Units White Blood Count 10.94 4.8-10.8 K/uL Red Blood Count 4.29 4.7-6.1 M/uL Hemoglobin 12.1 14.0-18.0 g/dL Hematocrit 36.0 42-52 % Mean Corpuscular Volume 83.9 80-100 fL Mean Corpuscular Hemoglobin 28.2 25-34 pg Mean Corpuscular Hemoglobin Concent 33.6 32-36 g/dl Platelet Count 157 130-400 K/uL Mean Platelet Volume 9.2 7.4-10.4 fL Neutrophils (%) (Auto) 89.1 % Lymphocytes (%) (Auto) 4.2 % Monocytes (%) (Auto) 6.3 % Eosinophils (%) (Auto) 0.0 % Basophils (%) (Auto) 0.1 % Neutrophils # (Auto) 9.75 1.4-6.5 K/uL Lymphocytes # (Auto) 0.46 1.2-3.4 K/uL Monocytes # (Auto) 0.69 0.11-0.59 K/uL Eosinophils # (Auto) 0.00 0-0.5 K/uL Basophils # (Auto) 0.01 0-0.2 K/uL RDW Standard Deviation 39.5 36.4-46.3 fL RDW Coefficient of Variation 13.2 11.5-14.5 % Immature Granulocyte % (Auto) 0.3 % Immature Granulocyte # (Auto) 0.03 0.00-0.02 K/uL Sodium Level 138 136-145 mmol/L Potassium Level 4.6 3.5-5.1 mmol/L Chloride Level 104 98-107 mmol/L Carbon Dioxide Level 27 21-32 mmol/L Anion Gap 7.0 3-11 mmol/L Blood Urea Nitrogen 18 7-18 mg/dl Creatinine 1.16 0.60-1.40 mg/dl Est Creatinine Clear Calc Drug Dose 81.8 ml/min Estimated GFR () 76.2 Estimated GFR (Non- 65.7 BUN/Creatinine Ratio 15.3 10-20 Random Glucose 141 70-99 mg/dl Calcium Level 7.6 8.5-10.1 mg/dl
--- NOTE | 2017-06-07 14:43 | Progress Note ---
Progress Note Date of Service June 07, 2017. Progress Note Patient's back pain is controlled. Leg symptoms are markedly improved. On exam his vital signs are stable. He is in the chair at the bedside. Is good strength testing. Assessment status post lumbar decompression fusion. Plan at this time will maintain the JUAN drain continue physical therapy anticipate discharge home in the next few days.
[2017-06-07] MEDS: DOCUSATE SODIUM/SENNA 50/8.6MG TAB PO SCH (21:15)
[2017-06-07] MEDS: LISINOPRIL 20 MG TAB PO SCH (21:15)
[2017-06-07] MEDS: AMITRIPTYLINE HCL 100 MG TAB PO SCH (21:16)
[2017-06-08] MEDS: POLYETHYLENE (MIRALAX) 17 GM PACK PO SCH ×4 (05:47→23:54)
[2017-06-08 08:06] VITALS: BP 130/50; PULSE 72; TEMP 36.9; O2SAT 94
[2017-06-08 08:13] VITALS: O2SAT 94
[2017-06-08] MEDS: ASPIRIN 81 MG ECTAB PO SCH (08:24)
[2017-06-08] MEDS: DIGOXIN 0.25 MG TAB PO SCH (08:25)
[2017-06-08] MEDS: METOPROLOL SUCC 50MG EXT REL TAB PO SCH ×2 (09:59→20:40)
[2017-06-08] MEDS ORDERED: TAMSULOSIN HCL 0.4 MG CAP PO ONE (11:30)
--- NOTE | 2017-06-08 12:20 | Progress Note ---
Progress Note Date of Service June 08, 2017. Progress Note Patient's back pain is controlled. Leg symptoms are improved. He was struggling with urinary retention yesterday and now has a Fernandes cath in place. Vital signs are stable. On exam his good strength testing does appear comfortable. Assessment status post lumbar decompression fusion per plan at this time will maintain the Fernandes today. Maintain JUAN drain today. I will begin Flomax today. Anticipate removal of Fernandes tomorrow DC drain tomorrow DC home.
--- NOTE | 2017-06-08 12:29 | Progress Note ---
Internal Med Progress Note Date of Service: June 08, 2017. Provider Documentation: SUBJECTIVE: The patient was seen and examined He is a status post L4-S1 decompression and fusion Minimal symptoms at operation site but denies any other symptoms Has been getting physical therapy and may be going home today Required Insertion of Fernandes last night Flomax started by the Primary Denies any symptoms OBJECTIVE: Vital Signs-as noted below Exam: General-no distress at rest Eyes-normal ENT-normal Neck-supple Lungs-clear to auscultate bilaterally Heart-irregular, no murmur appreciated Abdomen-benign, soft, nontender, bowel sounds present Extremities-trace edema bilaterally Neuro-alert, awake and oriented 3 No focal neuro deficit Lab data as noted below. ASSESSMENT & PLAN: This is a 67yo M with a PMH of HTN, paroxysmal A Fib, HLD, depression, anxiety and lumbar stenosis with neurogenic claudication who is POD #0 s/p L4-S1 decompression fusion by Dr. Celaya. Lumbar stenosis s/p decompression fusion: -L4-S1 decompression and fusion by Dr. Celaya. -Doing well post-operatively -Per ortho for pain control, wound care, anticoagulation and activities -Monitor H&H, continue incentive spirometry, PT/OT when appropriate -No significant symptoms reported and labs were unremarkable -Remains stable -will check CBC and PRP tomorrow Urinary Retention Required Fernandes insertion last night Flomax started Likely discontinue of Fernandes tomorrow before discharge Paroxysmal A Fib: -Regular rate and rhythm on exam -Cont home dose digoxin and Toprol -Has not been on any anticoagulation for A. fib except aspirin -Sees his mallet cutter routinely -We will not initiate any anticoagulation now HTN: -Slightly elevated 2/2 pain -Cont home lisinopril, toprol, terazosin -Remains controlled Depression, anxiety: -Cont amitriptyline -Ativan PRN HLD: -Red Yeast rice extract held DVT PROPHYLAXIS As per Ortho PCP: Dr. Duffy, [facility] in [place] Dispo: Per ortho DISPOSITION Medically stable to be discharged Vital Signs: Date Time Temp Pulse Resp B/P (MAP) Pulse Ox O2 Delivery O2 Flow Rate FiO2 06/08/17 08:25 72 06/08/17 08:13 94 Room Air 06/08/17 08:06 36.9 72 14 130/50 (76) 94 Room Air 06/08/17 07:54 Room Air 06/07/17 23:04 36.4 87 16 174/80 (111) 95 Room Air 06/07/17 21:00 Room Air 06/07/17 20:50 171/78 (109) 06/07/17 15:19 36.7 87 18 156/80 (105) 94 Room Air 06/07/17 15:00 Room Air
[2017-06-08 15:14] VITALS: BP 125/81; PULSE 100; TEMP 37; O2SAT 93
[2017-06-08 20:39] VITALS: BP 164/82; PULSE 94
[2017-06-08] MEDS: DOCUSATE SODIUM/SENNA 50/8.6MG TAB PO SCH (20:40)
[2017-06-08] MEDS: AMITRIPTYLINE HCL 100 MG TAB PO SCH (20:40)
[2017-06-08] MEDS: LISINOPRIL 20 MG TAB PO SCH (20:41)
[2017-06-08 22:55] VITALS: BP 169/88; PULSE 86; TEMP 36.8; O2SAT 93
[2017-06-08 23:56] VITALS: BP 147/80
[2017-06-09] MEDS: POLYETHYLENE (MIRALAX) 17 GM PACK PO SCH ×2 (06:02→12:35)
[2017-06-09 06:09] LABS: HEMATOCRIT 37.5 % (42-52); MEAN CELL VOLUME 83.9 fL (80-100); MEAN CORPUSCULAR HEMOGLOBIN 29.1 pg (25-34); MEAN CORPUSCULAR HGB CONC 34.7 g/dl (32-36); PLATELET COUNT 139 K/uL (130-400); RED CELL DISTRIBUTION WIDTH SD 39.4 fL (36.4-46.3); WHITE BLOOD COUNT 8.19 K/uL (4.8-10.8)
[2017-06-09 06:36] LABS: CALCIUM 8.8 mg/dl (8.5-10.1); CREATININE 0.91 mg/dl (0.60-1.40); POTASSIUM 4.1 mmol/L (3.5-5.1)
[2017-06-09 07:18] VITALS: BP 118/69; PULSE 94; TEMP 36.5; O2SAT 94
--- NOTE | 2017-06-09 07:51 | Orthopedic Progress Note ---
Orthopedic Progress Note Date of Service June 09, 2017. Subjective Post OP Day: 3 Reports: feeling well Additional Notes: Mr. Petty is postop day 3 lumbar decompression fusion. JUAN drain output last shift was 55 cc. H&H is morning are 13.0 and 37.5 respectively. Physical therapy examined 365 feet plus steps. No radicular leg pain. Back pain is controlled. He has had Fernandes catheter placed for the past almost 2 days. Today we will attempt a voiding trial and if he is able to urinate on his own discharge him home later today. Objective calves soft nontender, N/V intact, dressing C/D/I, A&O x3 He is in no obvious distress. Alert and oriented 3. Calves are soft nontender bilaterally. Neurovascular intact bilateral lower extremities. Fernandes catheter in place. Date Time Temp Pulse Resp B/P (MAP) Pulse Ox O2 Delivery O2 Flow Rate FiO2 06/09/17 07:18 36.5 94 18 118/69 (85) 94 Room Air 06/08/17 23:56 147/80 (102) 06/08/17 23:50 Room Air 06/08/17 22:55 36.8 86 16 169/88 (115) 93 Room Air 06/08/17 20:39 94 164/82 (109) 06/08/17 16:30 Room Air 06/08/17 15:14 37.0 100 18 125/81 (96) 93 Room Air 06/08/17 08:25 72 06/08/17 08:13 94 Room Air 06/08/17 08:06 36.9 72 14 130/50 (76) 94 Room Air 06/08/17 07:54 Room Air Laboratory Results 24 Hours: Test 06/09/17 05:46 Hematocrit 37.5 % Hemoglobin 13.0 g/dL Assessment & Plan Assessment: Postop day 3 lumbar decompression with instrument effusion with postoperative urinary retention with Fernandes catheter placement Plan: We will continue with pain control. Will DC JUAN drain and dressing today. DVT prophylaxis is in the form of teds and SCDs. We will start a voiding trial this morning. As long as he can urinate on his own he will discharge him later on this afternoon. Inhouse Planning Pain Management: Oxy IR DVT Prophylaxis: TEDs, SCDs Discharge Planning Discharge Planning: home Pain Management: Oxy IR DVT Prophylaxis: TEDs
[2017-06-09] MEDS: ASPIRIN 81 MG ECTAB PO SCH (08:32)
[2017-06-09] MEDS: METOPROLOL SUCC 50MG EXT REL TAB PO SCH (08:32)
[2017-06-09] MEDS: DIGOXIN 0.25 MG TAB PO SCH (08:33)
[2017-06-09] MEDS ORDERED: TAMSULOSIN HCL 0.4 MG CAP PO SCH (09:00)
[2017-06-09 14:00] VITALS: BP 118/69; PULSE 92; TEMP 36.5; O2SAT 94
[2017-06-09 15:09] VITALS: BP 109/58; PULSE 105; TEMP 37; O2SAT 94
--- NOTE | 2017-06-09 15:23 | Progress Note ---
Internal Med Progress Note Date of Service: June 09, 2017. Provider Documentation: SUBJECTIVE: The patient was seen and examined He is a status post L4-S1 decompression and fusion Minimal symptoms at operation site but denies any other symptoms Has been getting physical therapy and may be going home today Required Insertion of Fernandes last night Flomax started by the Primary Denies any symptoms 5/3 Remains free from any symptoms OBJECTIVE: Vital Signs-as noted below Exam: General-no distress at rest Eyes-normal ENT-normal Neck-supple Lungs-clear to auscultate bilaterally Heart-irregular, no murmur appreciated Abdomen-benign, soft, nontender, bowel sounds present Extremities-trace edema bilaterally Neuro-alert, awake and oriented 3 No focal neuro deficit Lab data as noted below. ASSESSMENT & PLAN: This is a 67yo M with a PMH of HTN, paroxysmal A Fib, HLD, depression, anxiety and lumbar stenosis with neurogenic claudication who is POD #0 s/p L4-S1 decompression fusion by Dr. Celaya. Lumbar stenosis s/p decompression fusion: -L4-S1 decompression and fusion by Dr. Celaya. -Doing well post-operatively -Per ortho for pain control, wound care, anticoagulation and activities -Monitor H&H, continue incentive spirometry, PT/OT when appropriate -No significant symptoms reported and labs were unremarkable -Remains stable -will check CBC and PRP tomorrow -no significant abnormality detected Medically stable Urinary Retention Required Fernandes insertion last night Flomax started D/C Fernandes today -voiding trial before discharge Paroxysmal A Fib: -Regular rate and rhythm on exam -Cont home dose digoxin and Toprol -Has not been on any anticoagulation for A. fib except aspirin -Sees his truckload checker routinely -We will not initiate any anticoagulation now HTN: -Slightly elevated 2/2 pain -Cont home lisinopril, Toprol, terazosin -Remains controlled Depression, anxiety: -Cont amitriptyline -Ativan PRN HLD: -Red Yeast rice extract held DVT PROPHYLAXIS As per Ortho PCP: Dr. Duffy, [facility] in [place] Dispo: Per ortho DISPOSITION Medically stable to be discharged Vital Signs: Date Time Temp Pulse Resp B/P (MAP) Pulse Ox O2 Delivery O2 Flow Rate FiO2 06/09/17 15:09 37.0 105 17 109/58 (75) 94 Room Air 06/09/17 14:00 36.5 92 18 94 Room Air 06/09/17 08:33 92 06/09/17 07:25 Room Air 06/09/17 07:18 36.5 94 18 118/69 (85) 94 Room Air 06/08/17 23:56 147/80 (102) 06/08/17 23:50 Room Air 06/08/17 22:55 36.8 86 16 169/88 (115) 93 Room Air 06/08/17 20:39 94 164/82 (109) 06/08/17 16:30 Room Air Lab Results: Results Past 24 Hours Test 06/09/17 05:46 Range/Units White Blood Count 8.19 4.8-10.8 K/uL Red Blood Count 4.47 4.7-6.1 M/uL Hemoglobin 13.0 14.0-18.0 g/dL Hematocrit 37.5 42-52 % Mean Corpuscular Volume 83.9 80-100 fL Mean Corpuscular Hemoglobin 29.1 25-34 pg Mean Corpuscular Hemoglobin Concent 34.7 32-36 g/dl RDW Standard Deviation 39.4 36.4-46.3 fL RDW Coefficient of Variation 13.0 11.5-14.5 % Platelet Count 139 130-400 K/uL Mean Platelet Volume 9.0 7.4-10.4 fL Sodium Level 134 136-145 mmol/L Potassium Level 4.1 3.5-5.1 mmol/L Chloride Level 100 98-107 mmol/L Carbon Dioxide Level 31 21-32 mmol/L Anion Gap 3.0 3-11 mmol/L Blood Urea Nitrogen 15 7-18 mg/dl Creatinine 0.91 0.60-1.40 mg/dl Est Creatinine Clear Calc Drug Dose 104.3 ml/min Estimated GFR () 102.1 Estimated GFR (Non- 88.1 BUN/Creatinine Ratio 16.7 10-20 Random Glucose 105 70-99 mg/dl Calcium Level 8.8 8.5-10.1 mg/dl
== END 2017-06-09 16:09 | disposition home or self-care (01) | DRG 455 ==
LOC: C.ACU 08:43 → UNDOADMIN 12:00 → C.3E 12:00 → ENRESERV 15:42
PROVIDERS: ADMIT Orthopaedic Surgery Orthopaedic Surgery of the Spine; ATTEND Orthopaedic Surgery Orthopaedic Surgery of the Spine
PROC: 0SG0071 Fusion of Lumbar Vertebral Joint with Autologous Tissue Substitute, Posterior Approach, Posterior Column, Open Approach (ICD-10-PCS; principal; 2017-06-06 11:45)
PROC: 0SG00AJ Fusion of Lumbar Vertebral Joint with Interbody Fusion Device, Posterior Approach, Anterior Column, Open Approach (ICD-10-PCS; principal; 2017-06-06 11:45)
PROC: 0SG30AJ Fusion of Lumbosacral Joint with Interbody Fusion Device, Posterior Approach, Anterior Column, Open Approach (ICD-10-PCS; principal; 2017-06-06 11:45)
PROC: 0ST40ZZ Resection of Lumbosacral Disc, Open Approach (ICD-10-PCS; principal; 2017-06-06 11:45)
PROC: 0SG3071 Fusion of Lumbosacral Joint with Autologous Tissue Substitute, Posterior Approach, Posterior Column, Open Approach (ICD-10-PCS; principal; 2017-06-06 11:45)
DX: M48.062 Spinal stenosis, lumbar region with neurogenic claudication (principal); R33.9 Retention of urine, unspecified; I48.0 Paroxysmal atrial fibrillation; I10 Essential (primary) hypertension; F32.9 Major depressive disorder, single episode, unspecified; F41.9 Anxiety disorder, unspecified; E78.5 Hyperlipidemia, unspecified; Z79.82 Long term (current) use of aspirin

== ENCOUNTER 2020-08-28 05:59 | Observation (INO) ==
--- NOTE | 2020-08-12 17:01 | PAT Medication Instructions ---
Medication Instructions Date of Service August 12, 2020 Home Medications amitriptyline 150 mg PO HS aspirin [Aspir-81] 81 mg PO QAM cyanocobalamin (vitamin B-12) 500 mcg PO QAM digoxin 125 mcg PO QAM docusate sodium [Dulcolax Stool Softener (dss)] 100 mg PO BID duloxetine 20 mg PO QAM hydrochlorothiazide 25 mg PO QAM hydrocodone-acetaminophen [Vicodin] 1 tab PO BID PRN lisinopril 20 mg PO BID lorazepam 0.5 mg PO DAILY PRN melatonin 3 mg PO HS metoprolol succinate 50 mg PO BID psyllium husk [Metamucil] 0.8 g PO QAM red yeast rice 1,200 mg PO QAM tadalafil [Cialis] 10 mg PO DAILY PRN terazosin 2 mg PO HS ASK your prescriber and surgeon aspirin [Aspir-81] 81 mg PO QAM STOP taking 2 weeks before surgery red yeast rice 1,200 mg PO QAM STOP taking 24 hours before surgery tadalafil [Cialis] 10 mg PO DAILY PRN DO NOT take the morning of surgery cyanocobalamin (vitamin B-12) 500 mcg PO QAM docusate sodium [Dulcolax Stool Softener (dss)] 100 mg PO BID hydrochlorothiazide 25 mg PO QAM lisinopril 20 mg PO BID psyllium husk [Metamucil] 0.8 g PO QAM Take morning of surgery With a small sip of water, OTHERWISE NOTHING TO EAT OR DRINK AFTER MIDNIGHT: digoxin 125 mcg PO QAM duloxetine 20 mg PO QAM hydrocodone-acetaminophen [Vicodin] 1 tab PO BID PRN (okay to take up to 4 hours prior to surgery if needed) lorazepam 0.5 mg PO DAILY PRN (if needed) metoprolol succinate 50 mg PO BID Take evening before surgery amitriptyline 150 mg PO HS docusate sodium [Dulcolax Stool Softener (dss)] 100 mg PO BID hydrocodone-acetaminophen [Vicodin] 1 tab PO BID PRN (if needed) lisinopril 20 mg PO BID lorazepam 0.5 mg PO DAILY PRN (if needed) melatonin 3 mg PO HS metoprolol succinate 50 mg PO BID terazosin 2 mg PO HS Other Notes If you have any questions please call us at [phone] or [phone] or [phone] or [phone]
--- NOTE | 2020-08-14 15:23 | Anesthesiology Consultation ---
Date of Service August 14, 2020 Assessment & Plan (1) Encounter for pre-operative examination: Chart Review Chart Review: Acceptable Risk for Surgery (08/15 stress test, 08/15 event monitor (if available), final cardio clearance, PCP clearance (response on kidney function), and preop Covid testing results ) and Patient seen in Pre Admission Testing - Awaiting stress test and event monitor for 08/15/20 - Awaiting cardio clearance (seen in office 08/12)- awaiting above testing prior to clearance - Awaiting PCP clearance 08/20/20 or 08/21/20 (did send note to PCP re: kidney function) With lumbar surgery- patient had hall catheter placed and had infection- recommended patient discuss with surgeon *Per PAT appt on 08/14/20, patient denies any travel or large group activities. Pt's is going on hot air balloon ride with family on 08/23/20 (patient will stay home). Pt's instructed to wear mask. No known Covid positive contacts or Covid related symptoms. No known Covid infection in the past 90 days. Pt is vaccinated for Covid. Preop Covid testing scheduled 08/26/20= will await results. Educated on importance of self quarantining, social distancing and wearing mask in public both for the patient after Covid testing done History Surgery Operation Date: 08/28/20 11:25 Proposed Procedures p C5-C7 Anterior Cervical Discectomy Fusion, C6 Corpectomy, Spinal Cord Monitoring - Luis Daniel Celaya, Height/Weight Height: 6 ft 1 in Weight: 98.8 kg Allergies Allergy/AdvReac Type Severity Reaction Status Date / Time amoxicillin Allergy Intermediate Depression Verified 08/07/20 13:03 Medications Home Medications Medication Instructions Recorded Confirmed Last Taken amitriptyline 150 mg PO HS 08/07/20 08/07/20 Unknown aspirin [Aspir-81] 81 mg PO QAM 08/07/20 08/07/20 Unknown cyanocobalamin (vitamin B-12) 500 mcg PO QAM 08/07/20 08/07/20 Unknown digoxin 125 mcg PO QAM 08/07/20 08/07/20 Unknown docusate sodium [Dulcolax Stool 100 mg PO BID 08/07/20 08/07/20 Unknown Softener (dss)] duloxetine 20 mg PO QAM 08/07/20 08/07/20 Unknown hydrochlorothiazide 25 mg PO QAM 08/07/20 08/07/20 Unknown hydrocodone-acetaminophen [Vicodin] 1 tab PO BID PRN 08/07/20 08/07/20 Unknown lisinopril 20 mg PO BID 08/07/20 08/07/20 Unknown lorazepam 0.5 mg PO DAILY PRN 08/07/20 08/07/20 Unknown melatonin 3 mg PO HS 08/07/20 08/07/20 Unknown metoprolol succinate 50 mg PO BID 08/07/20 08/07/20 Unknown psyllium husk [Metamucil] 0.8 g PO QAM 08/07/20 08/07/20 Unknown red yeast rice 1,200 mg PO QAM 08/07/20 08/07/20 Unknown tadalafil [Cialis] 10 mg PO DAILY PRN 08/07/20 08/07/20 Unknown terazosin 2 mg PO HS 08/07/20 08/07/20 Unknown Past Medical History Medical History (Updated 08/14/20 @ 16:27 by Ita Gale PA-C) Anxiety and depression STABLE Aortic stenosis Mild to moderate aortic stenosis per 11/2019 ECHO Arthritis Atrial fibrillation FOLLOWS WITH DR. TIJERINA ONLY ON ASA 81MG Degenerative disc disease HLD (hyperlipidemia) CONTROLLED RED YEAST RICE Hypertension Exercise / Class Metabolic Activity II 4-5 Yardwork/Stairs/Walk up hill (ONE FLIGHT OF STAIRS- NO CHEST PAIN OR SOB ) Past Family History Family History Father Family hx of colon cancer Other No family history of adverse response to anesthesia Past Surgical History Surgical History H/O abdominal surgery WORK EQUIPMENT CAUSED INTERNAL BLEEDING/REQUIRED SURGERY TO REMOVED BLOOD COLLECTION H/O hand surgery RT (NO HARDWARE) History of appendectomy History of cardiac cath 5 YEARS AGO (NO STENTS) History of colonoscopy History of lumbar spinal fusion History of tonsillectomy [place] teeth removed Past Anesthesia History No Hx of Anesthesia Complications and No Family Hx of Anesthesia Complications History of PONV No Hx of PONV and No Hx of Motion Sickness Social History Smoking Status: Never smoker Hx Alcohol Use: Yes Alcohol type: hard liquor alcohol intake frequency: a few times a month Alcohol Intake Frequency Comment: MIXED DRINK substance use type: does not use Review of Systems Hx of snoring - no hx of sleep study Patient denies chest pain, shortness of breath, dyspnea on exertion, reflux, cough, wheezing, palpitations. No hx of seizures, stroke, [place]. No hx of blood clots or blood transfusions Physical Exam Vital Signs VITALS BP 110/62 (manually) P 82 TEMP 98.2 SP02 95% RESP 16 Constitutional no acute distress ENMT Mouth: no TMJ clicking Thyromental Distance: > or= 3.5 Finger Breadths (3.5) Mallampati Class: III Missing molars Capped on molars Neck + limited neck extension (significant ) Respiratory normal respiratory effort; no respiratory distress Auscultation: lungs clear to auscultation bilaterally; no wheezes Cardiovascular Rate/Rhythm: regular rate and regular rhythm Heart Sounds: + murmur (II-III/ murmur ) Vessels: no carotid bruit Musculoskeletal Spine: no pain with cervical ROM Extremities: extremities normal to inspection Psychiatric Orientation: alert Lab Results Anesthesia Preop Results Results Anesthesia Widget: WBC 5.49 K/uL (4.8-10.8) 08/14/20 Hgb 14.4 g/dL (14.0-18.0) 08/14/20 Hct 43.0 % (42-52) 08/14/20 Plt 190 K/uL (130-400) 08/14/20 Na 140 mmol/L (136-145) 08/14/20 K 4.2 mmol/L (3.5-5.1) 08/14/20 Cl 104 mmol/L (98-107) 08/14/20 CO2 33 mmol/L (21-32) H 08/14/20 BUN 27 mg/dl (7-18) H 08/14/20 Creat 1.42 mg/dl (0.6-1.4) H 08/14/20 Glucose Level 130 mg/dl (70-99) H 08/14/20 PT 10.6 Seconds (9.0-12.0) 08/14/20 PTT 24.0 Seconds (21.0-31.0) 08/14/20 INR 1.0 (0.9-1.1) 08/14/20 Urine Color Yellow 08/14/20 Urine Appearance Clear (Clear) 08/14/20 Urine pH 6.0 (4.5-7.5) 08/14/20 Urine Specific [place] 1.021 (1.000-1.030) 08/14/20 Urine Protein Negative (Negative) 08/14/20 Urine Glucose (UA) Negative (Negative) 08/14/20 Urine Ketones Trace (Negative) H 08/14/20 Urine Blood Negative (Negative) 08/14/20 Urine Nitrite Negative (Negative) 08/14/20 Urine Bilirubin Negative (Negative) 08/14/20 Urine Urobilinogen Positive (Negative) H 08/14/20 Urine Leukocyte Esterase Negative (Negative) 08/14/20 Blood Type A Negative 08/14/20 Antibody Screen NEGATIVE 08/14/20 Testing Electrocardiogram Date: 08/12/20 SR at 76bpm. Intra-atrial conductions delay. Chest X-Ray Date: 08/14/20 Findings: + NAD Echocardiogram Date: 12/01/19 EF: 55% LV Function: normal Other Findings: + LVH (Moderate/concentric) and + diastolic dysfunction (Grade 1) Left atrium moderately dilated. Mild to moderate aortic stenosis (LETI =1.20 cm; mean gradient 17 mmHg) Aortic root is enlarged. Cardiac Catheterization Date: 05/10/13 LM = angiographically normal LAD =10-30% Circumflex =10-30% RCA =10-30% EF is estimated 60%. Left ventriculography reveals normal wall motion. Conclusions: Minimal CAD. Normal LV function.
[2020-08-28] MEDS ORDERED: ACETAMINOPHEN 500 MG TAB PO SCH (06:00)
[2020-08-28] MEDS ORDERED: CeleBREX 200 MG CAP PO SCH (06:00)
[2020-08-28] MEDS ORDERED: ceFAZolin 2000MG 2,000 MG/15 ML SYR IV SCH (06:00)
[2020-08-28] MEDS ORDERED: LR 15ML/HR IV SCH (06:00)
[2020-08-28] MEDS ORDERED: GABAPENTIN 300 MG CAP PO SCH (06:00)
[2020-08-28] MEDS ORDERED: ONDANSETRON INJ 2 MG/ML 2 ML VIAL ONE ×2 (06:53→09:42)
[2020-08-28] MEDS ORDERED: PROPOFOL IV EMULSION 10 MG/ML 20 ML VIAL IV ONE (06:53)
[2020-08-28] MEDS ORDERED: LIDOCAINE 2% 2 ML VIAL/AMP(20MG/ML) INFIL ONE (06:53)
[2020-08-28] MEDS ORDERED: ROCURONIUM BROMIDE 10 MG/ML 5 ML VIAL IV ONE (06:53)
[2020-08-28] MEDS ORDERED: MIDAZOLAM HCL 1 MG/ML 2ML VIAL ONE (06:53)
[2020-08-28] MEDS ORDERED: fentaNYL citrate 100 MCG/2 ML VIAL ONE (06:53)
--- NOTE | 2020-08-28 07:51 | History & Physical Bridge Note ---
Date of Service August 28, 2020 History & Physical Bridge Note I have examined the patient, reviewed the History & Physical and in the interval since the performance of the History & Physical I have noted the following changes of clinical significance: no changes noted
--- NOTE | 2020-08-28 07:52 | History & Physical Report ---
Date of Service August 28, 2020 Assessment & Plan (1) Cervical stenosis of spinal canal: Plan: C5-C7 anterior discectomy and fusion, C6 corpectomy History of Present Illness Chief Complaint: Neck and bilateral arm pain Primary Care Provider: Eve Hansen DO This is a 62-year-old male presents with current persistent neck and arm pain. Failing course of nonoperative care is here for surgical invention. Allergies Allergy/AdvReac Type Severity Reaction Status Date / Time amoxicillin Allergy Intermediate Depression Verified 08/28/20 06:33 Home Medications Medication Instructions Recorded Confirmed Type amitriptyline 50 mg tablet 150 mg PO HS 08/07/20 08/28/20 History aspirin 81 mg tablet,delayed 81 mg PO QAM 08/07/20 08/28/20 History release cyanocobalamin (vitamin B-12) 500 500 mcg PO QAM 08/07/20 08/28/20 History mcg tablet digoxin 125 mcg (0.125 mg) tablet 125 mcg PO QAM 08/07/20 08/28/20 History docusate sodium 100 mg capsule 100 mg PO BID 08/07/20 08/28/20 History (Dulcolax Stool Softener (docusate)) duloxetine 20 mg capsule,delayed 20 mg PO QAM 08/07/20 08/28/20 History release hydrochlorothiazide 25 mg tablet 25 mg PO QAM 08/07/20 08/28/20 History hydrocodone 5 mg-acetaminophen 300 1 tab PO BID PRN 08/07/20 08/28/20 History mg tablet lisinopril 20 mg tablet 20 mg PO BID 08/07/20 08/28/20 History lorazepam 0.5 mg tablet 0.5 mg PO DAILY PRN 08/07/20 08/07/20 History melatonin 3 mg capsule 3 mg PO HS 08/07/20 08/28/20 History metoprolol succinate 100 mg 50 mg PO BID 08/07/20 08/28/20 History tablet,extended release 24 hr psyllium husk 0.4 gram capsule 0.8 g PO QAM 08/07/20 08/28/20 History (Metamucil) red yeast rice 600 mg capsule 1,200 mg PO QAM 08/07/20 08/28/20 History tadalafil 20 mg tablet (Cialis) 10 mg PO DAILY PRN 08/07/20 08/28/20 History terazosin 2 mg capsule 2 mg PO HS 08/07/20 08/28/20 History Past Med/Surg History Medical History (Updated 08/28/20 @ 07:51 by Luis Daniel Celaya DO) Anxiety and depression STABLE Aortic stenosis Mild to moderate aortic stenosis per 11/2019 ECHO Arthritis Atrial fibrillation FOLLOWS WITH DR. TIJERINA ONLY ON ASA 81MG CAD (coronary artery disease) Minimal disease per 2013 cath per records Degenerative disc disease HLD (hyperlipidemia) CONTROLLED RED YEAST RICE Hypertension Surgical History H/O abdominal surgery WORK EQUIPMENT CAUSED INTERNAL BLEEDING/REQUIRED SURGERY TO REMOVED BLOOD COLLECTION H/O hand surgery RT (NO HARDWARE) History of appendectomy History of cardiac cath 5 YEARS AGO (NO STENTS) History of colonoscopy History of lumbar spinal fusion History of tonsillectomy [place] teeth removed Family History Father Family hx of colon cancer Other No family history of adverse response to anesthesia Social History Smoking Status: Never smoker Second Hand Exposure: No; Hx Alcohol Use: Yes Alcohol type: hard liquor Preferred Language: Burkinan Armature Connector Required: No Beliefs That Will Affect Care: None Current Living Situation: Spouse Feels Safe at Home: Yes Safety Concerns: Feels Safe At This Time Assistive Devices: Glasses Physical Exam Physical Exam: Patient is alert and oriented Heart regular in rhythm Lungs clear to auscultation Results & Data ([facility]) Vital Signs (Past 12 Hours) Vital Signs Temp Pulse Resp BP Pulse Ox 08/28/20 06:49 36.6 C 75 18 147/80 H 96
[2020-08-28] MEDS ORDERED: ePHEDrine sulfate 50 MG/ML AMP IV PRN (08:51)
[2020-08-28] MEDS ORDERED: fentaNYL citrate 100 MCG/2 ML VIAL IV PRN (08:51)
[2020-08-28] MEDS ORDERED: HYDROmorphone INJ 2 MG/ML SYR/VIAL IV PRN (08:51)
[2020-08-28] MEDS ORDERED: ATROPINE SULFATE 0.1 MG/ML 10ML SYR IV PRN (08:51)
[2020-08-28] MEDS ORDERED: ONDANSETRON INJ 2 MG/ML 2 ML VIAL IV PRN ×2 (08:51→12:01)
[2020-08-28] MEDS ORDERED: PROMETHAZINE HCL 6.25 MG in SODIUM CHLORIDE 0.9% 50 ML IV PRN (08:51)
[2020-08-28] MEDS ORDERED: PHENYLEPHRINE 100MCG/ML 5ML SYR ONE (09:12)
[2020-08-28] MEDS ORDERED: ePHEDrine sulfate 50 MG/ML AMP ONE (09:12)
[2020-08-28] MEDS ORDERED: PHENYLEPHRINE HCL 10 MG/ML VIAL ONE (09:12)
[2020-08-28] MEDS ORDERED: FLOSEAL HEMOSTATIC MATRIX 10ML TOP ONE (09:39)
[2020-08-28] MEDS ORDERED: GLYCOPYRROLATE 0.2 MG/ML VIAL ONE (09:40)
[2020-08-28] MEDS ORDERED: NEOSTIGMINE METHYLSULFATE 1 MG/ML 10ML VIAL ONE (09:40)
--- NOTE | 2020-08-28 09:51 | Operative Report ---
Post Operative Report Pre & Post Diagnosis Operation Date: 08/28/20 07:45 Pre-Op Diagnosis: Cervical spinal stenosis with radiculopathy Post-Op Diagnosis: Same I identified the patient and participated in the time-out.: Yes Procedure Operation Date: 08/28/20 07:45 Actual Procedures #1 anterior cervical corpectomy with bilateral foraminotomies C6. #2 anterior cervical arthrodesis C5-C7. #3 placement of 25 mm peek cage C5-C7. #4 placement locally harvested morselized autograft combined with I factor in the interbody cage. #5 application 5 complete screws from C5-C7. Surgeon Luis Daniel Celaya, Chemical Etch Operator Petty Multani Estimated Blood Loss 20 Findings Consistent with Post-Op Diagnosis Specimens None Indications This is a 62-year-old male well-known to me the presents with above-mentioned diagnosis after failing course of nonoperative care is here for the above- mentioned procedure. Description of Procedure Patient was met with identified informed consent obtained. Patient was then taken to the operative suite underwent ablation placed in supine position Star table head Jordan headhunter. All bony prominences well-padded eyes inspected to ensure no external pressure placed upon the. This point the anterior cervical spine was prepped and draped in a sterile fashion. The assistance of fluoroscopy identified the C6 vertebral body and a transverse incision was placed along the right anterior aspect of the cervical spinal lines region. Sharp dissection assistance of bipolar electrocautery was performed down to and exposing anterior cervical spine from C5-C7. Self-retaining retractors placed. Then performed a complete discectomy of C5-C6 out to the uncovertebral joints bilaterally followed by C6-C7. [place] distracting pins were placed in C5 and C7 to distract across the C6 vertebral body. Complete corpectomy was then performed including removal of all posterior annular fibers longitudinal ligament bilateral foraminotomies completed. Endplates were then burred to subcortically bone and a 25 mm peek cage filled with locally harvested morselized autograft and I factor tapped in position. Distracting apparatus was removed and a 5 complete and screws applied with the assistance of fluoroscopy. The incision was then copiously irrigated explored to ensure no damage to surrounding structures remaining bleeding. 15 round JUAN drain inserted. The incision was then closed with 2 Vicryl in a fashion of 4 Monocryl for final skin closure. Steri-Strip sterile dressing was placed. Patient will continue PACU stable condition. Please note spinal cord monitoring was utilized at the procedure no changes noted. Lastly Petty Multani was present at the entire procedure involved the patient positioning complex portions of the surgery and final skin closure. I attest to the content of the Intraoperative Record and any orders documented therein. Any exceptions are noted below.
--- NOTE | 2020-08-28 10:04 | Fluoroscopy Report ---
FL cervical 2-3V CLINICAL HISTORY: C5-7 ACDF C6 CORPECTOMY COMPARISON STUDY: None. FLUOROSCOPY TIME: 22.7 seconds. FLUOROSCOPIC IMAGES: 2. FINDINGS: Endotracheal tube is partially imaged. Exact localization is not possible given partial vis ualization of the cervical spine on these fluoroscopic images. Multilevel anterior fusion is noted. H ardware is intact. IMPRESSION: Fluoroscopy provided during anterior cervical discectomy and fusion. ACT 112: Negative or not required by law. Electronically signed by: Lucas Mcqueen M.D. 08/28/2020 10:02 AM
[2020-08-28] MEDS ORDERED: LORazepam 0.5 MG TAB PO PRN (12:01)
[2020-08-28] MEDS ORDERED: RACEPINEPHRINE 2.25% NEBU SOLN 0.5 ML VIAL INH PRN (12:01)
[2020-08-28] MEDS ORDERED: SOD PHOSPHATE/SOD BIPHOSPHATE ENEMA 132 ML BTL PR PRN (12:01)
[2020-08-28] MEDS ORDERED: diphenhydrAMINE Capsule 25 MG CAP PO PRN (12:01)
[2020-08-28] MEDS ORDERED: HYDROmorphone INJ 0.5 MG/0.5 ML SYR IV PRN (12:01)
[2020-08-28] MEDS ORDERED: HYDROmorphone INJ 1 MG/ML SYRINGE IV PRN (12:01)
[2020-08-28] MEDS ORDERED: METOCLOPRAMIDE HCL INJ 5 MG/ML 2 ML VIAL IV PRN (12:01)
[2020-08-28] MEDS ORDERED: NALOXONE HCL 0.4 MG/1 ML VIAL/CARP IV PRN (12:01)
[2020-08-28] MEDS ORDERED: oxyCODONE HCL IR 5 MG TAB (IMMEDIATE RELEASE) PO PRN (12:01)
[2020-08-28] MEDS ORDERED: DO NOT ADMINISTER PNEUMOCOCCAL VACCINE PRN (12:01)
[2020-08-28] MEDS ORDERED: FAMOTIDINE 20 MG TAB PO PRN (12:01)
[2020-08-28] MEDS ORDERED: hydrOXYzine HCl 25 MG TAB PO PRN (12:01)
[2020-08-28] MEDS ORDERED: ONDANSETRON 4 MG OD TAB PO PRN (12:01)
[2020-08-28] MEDS ORDERED: DO NOT ADMINISTER FLU VACCINE PRN (12:01)
[2020-08-28] MEDS ORDERED: LORazepam 0.5 MG/1 ML VIAL IV PRN (12:01)
[2020-08-28] MEDS ORDERED: ACETAMINOPHEN 1,000 MG/100 ML VIAL IV PRN (12:01)
[2020-08-28] MEDS ORDERED: ACETAMINOPHEN 500 MG TAB PO PRN (12:01)
[2020-08-28] MEDS ORDERED: traMADol HCL 50 MG TABLET PO PRN (12:01)
[2020-08-28] MEDS ORDERED: dexAMETHasone 8 MG in SYRINGE 0 ML IV PRN (12:01)
[2020-08-28] MEDS ORDERED: PROMETHAZINE HCL 12.5 MG in SODIUM CHLORIDE 0.9% 50 ML IV PRN (12:01)
[2020-08-28] MEDS ORDERED: MAGNESIUM HYDROXIDE SUSP 30 ML UDC PO PRN (12:01)
[2020-08-28] MEDS ORDERED: ALUMINUM/MAGNESIUM SUSP 30 ML UDC PO PRN (12:01)
--- NOTE | 2020-08-28 12:22 | Hospitalist Consultation ---
Date of Consultation August 28, 2020 Assessment & Plan (1) Cervical stenosis of spinal canal: - S/p elective C5-C7 anterior discectomy and fusion, C6 corpectomy, by Dr. Celaya, POD #0. - Pain management, bowel regimen and DVT ppx per the primary team - PT/OT consults - Follow am CBC to monitor for acute blood loss, monitor JUAN drain outs - Pt lives at home with who will be able to assist him after discharge. (2) Paroxysmal atrial fibrillation: -Rate controlled with digoxin 125 mcg daily, metoprolol succinate 50 mg BID, patient takes baby aspirin daily. (3) HTN (hypertension): -Continue metoprolol, HCTZ and lisinopril as ordered (4) HLD (hyperlipidemia): -Not on statin therapy (5) Anxiety: -Continue Cymbalta 20 mg daily, lorazepam as needed (6) Depression: -As above DVT prophylaxis: - teds, scds, baby aspirin Dispo: From home, likely to remain in the hospital x 1-2 days Thank you for involving us in the care of Mr. Garcia. Please do not hesitate to call with questions or concerns. At this time medicine service will follow along. Supervising Physician Co-Signing Physician Notes Patient is a 70-year-old male with history of hypertension, hyperlipidemia, paroxysmal A. fib currently not on any anticoagulation, depression and anxiety was consulted for postop medical management after having anterior cervical corpectomy with bilateral foraminotomies, anterior cervical arthrodesis C5-C7 by Dr. Celaya postop day 0. Patient is doing well postoperatively. He states having left upper extremity numbness which is chronic which he attributes to carpal tunnel. Denies any significant pain at surgical site. Tolerating clear liquid diet. Denies chest pain, shortness of breath, dizziness, nausea, abdominal pain. Blood pressure relatively low postoperatively. On exam patient is moderately built and nourished, no apparent distress, normocephalic atraumatic, neck: Surgical site in dressing,+ drain, normal breath sounds, clear to auscultation, S1-S2,+ murmur, no pedal edema, abdomen soft, nontender, normal bowel sounds, alert, awake, oriented, grossly no focal deficits. Patient is consulted for postop medical management. Monitor for postop anemia with daily CBC. Continue bowel regimen to prevent constipation. Pain control, DVT prophylaxis, wound care as per primary team. Will hold HCTZ, lisinopril for now due to relatively low blood pressure. Continue digoxin, metoprolol for atrial fibrillation. I personally reviewed the record. Patient is interviewed and examined at bedside. Patient's care is coordinated with Christine Perez. Please refer to the documentation above for details of patient's presentation and for discussion of other issues. History of Present Illness Reason for Consultation: Medical management Requesting Physician: Dr. Celaya Attending Physician: Luis Daniel Celaya, DO History of Present Illness This is a 70 yo M with PMHx of HTN, HLD, A. fib, aortic stenosis, anxiety and depression and arthritis who presents for elective C5-C7 anterior discectomy and fusion, C6 corpectomy by Dr. Celaya on 08/28/2020 due to history of persistent neck and arm pain failing course of nonoperative care. Patient feels well after having surgery, he denies any acute pain in his neck or numbness or tingling going down into his arms. Ports having some form of carpal tunnel, worse in his right versus his left. Patient is left-handed. Patient tolerated lunch without difficulty, no nausea no vomiting, no abdominal pain. Had his last bowel movement last evening. He lives at home with his . They both are very active and continue to work. 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 Denies any other acute complaints. Allergies Allergy/AdvReac Type Severity Reaction Status Date / Time amoxicillin Allergy Intermediate Depression Verified 08/28/20 06:33 Home Medications Medication Instructions Recorded Confirmed Type amitriptyline 50 mg tablet 150 mg PO HS 08/07/20 08/28/20 History aspirin 81 mg tablet,delayed 81 mg PO QAM 08/07/20 08/28/20 History release cyanocobalamin (vitamin B-12) 500 500 mcg PO QAM 08/07/20 08/28/20 History mcg tablet digoxin 125 mcg (0.125 mg) tablet 125 mcg PO QAM 08/07/20 08/28/20 History docusate sodium 100 mg capsule 100 mg PO BID 08/07/20 08/28/20 History (Dulcolax Stool Softener (docusate)) duloxetine 20 mg capsule,delayed 20 mg PO QAM 08/07/20 08/28/20 History release hydrochlorothiazide 25 mg tablet 25 mg PO QAM 08/07/20 08/28/20 History hydrocodone 5 mg-acetaminophen 300 1 tab PO BID PRN 08/07/20 08/28/20 History mg tablet lisinopril 20 mg tablet 20 mg PO BID 08/07/20 08/28/20 History lorazepam 0.5 mg tablet 0.5 mg PO DAILY PRN 08/07/20 08/07/20 History melatonin 3 mg capsule 3 mg PO HS 08/07/20 08/28/20 History metoprolol succinate 100 mg 50 mg PO BID 08/07/20 08/28/20 History tablet,extended release 24 hr psyllium husk 0.4 gram capsule 0.8 g PO QAM 08/07/20 08/28/20 History (Metamucil) red yeast rice 600 mg capsule 1,200 mg PO QAM 08/07/20 08/28/20 History tadalafil 20 mg tablet (Cialis) 10 mg PO DAILY PRN 08/07/20 08/28/20 History terazosin 2 mg capsule 2 mg PO HS 08/07/20 08/28/20 History oxycodone 5 mg tablet 5 mg PO Q6H PRN #20 tab 08/28/20 Rx tramadol 50 mg tablet 50 mg PO Q6H PRN #20 tab 08/28/20 Rx Patient History Medical History (Updated 08/28/20 @ 07:51 by Luis Daniel Celaay DO) Anxiety and depression STABLE Aortic stenosis Mild to moderate aortic stenosis per 11/2019 ECHO Arthritis Atrial fibrillation FOLLOWS WITH DR. TIJERINA ONLY ON ASA 81MG CAD (coronary artery disease) Minimal disease per 2013 cath per records Degenerative disc disease HLD (hyperlipidemia) CONTROLLED RED YEAST RICE Hypertension Surgical History H/O abdominal surgery WORK EQUIPMENT CAUSED INTERNAL BLEEDING/REQUIRED SURGERY TO REMOVED BLOOD COLLECTION H/O hand surgery RT (NO HARDWARE) History of appendectomy History of cardiac cath 5 YEARS AGO (NO STENTS) History of colonoscopy History of lumbar spinal fusion History of tonsillectomy [place] teeth removed Family History Father Family hx of colon cancer Other No family history of adverse response to anesthesia Social History Smoking Status: Never smoker Second Hand Exposure: No; Hx Alcohol Use: Yes Alcohol type: hard liquor Preferred Language: Mauritian Decorating Inspector Required: No Beliefs That Will Affect Care: None Current Living Situation: Spouse Feels Safe at Home: Yes Safety Concerns: Feels Safe At This Time Assistive Devices: Glasses Review of Systems Review of Systems: Constitutional: No fever, sweats or chills Eyes: No diplopia, no worsening or blurred vision ENT: normal hearing, no trouble swallowing, no swelling of throat, no numbness or tingling of neck. Respiratory: No cough, sputum, dyspnea at rest or on exertion Cardiovascular: No chest pain, tightness or palpitations Abdomen: No pain, nausea, vomiting, diarrhea or constipation Musculoskeletal: No joint pain, calf pain, swelling Neurologic: No weakness, numbness/tingling, or balance problems Psychiatric: No anxiety or depression Skin: No rash or itch Physical Exam Physical Exam: General: awake, alert, no apparent distress Head: Normocephalic, atraumatic ENT: PERRL, EOMI, no pharyngeal exudate, mucous membranes moist, + anterior dressing C/D/I, JUAN drain in place draining bloody serosanguineous fluid. Chest: Clear to auscultation, on 2L via NC, no adventitious breath sounds Cardiac: Regular rate and rhythm, + murmur, no JVD, normal peripheral pulses, good capillary refill Abdominal: NABS x 4 quadrants, soft, nondistended, nontender to palpation, no rebound or guarding Extremities: Normal inspection, no peripheral edema or erythema, calfs nontender to palpation Psych: Normal mood and affect Neuro: AAO x 3, strength intact bilaterally and rated 5/5, no motor deficits, speech is clear, no peripheral sensory deficits Results & Data Results & Data ([facility]) Vital Signs (Past 12 Hours) Vital Signs Temp Pulse Pulse Resp BP Pulse Ox 08/28/20 12:13 36.4 C L 65 16 121/68 97 08/28/20 11:45 36.5 C 67 18 116/62 96 08/28/20 11:30 65 12 104/55 L 97 08/28/20 11:20 68 17 94/54 L 94 08/28/20 11:10 64 12 92/51 L 98 08/28/20 11:00 36.4 C L 65 12 84/48 L 95 08/28/20 10:50 64 12 92/52 L 96 08/28/20 10:40 71 12 106/64 99 08/28/20 10:30 68 16 113/57 L 99 08/28/20 10:20 66 12 103/58 L 98 08/28/20 10:10 63 12 87/51 L 98 08/28/20 10:07 36.2 C L 63 12 87/51 L 98 08/28/20 10:00 65 12 87/56 L 98 08/28/20 06:49 36.6 C 75 18 147/80 H 96 Diagnostic Findings Cervical X ray:Endotracheal tube is partially imaged. Exact localization is not possible given partial visualization of the cervical spine on these fluoroscopic images. Multilevel anterior fusion is noted. Hardware is intact.
--- NOTE | 2020-08-28 12:27 | Anesthesiology Progress Note ---
Date of Service August 28, 2020 Anesthesia Post Procedure Vital Signs Vital Signs: Temp Pulse Pulse Resp BP Pulse Ox 08/28/20 12:13 36.4 C L 65 16 121/68 97 08/28/20 11:45 36.5 C 67 18 116/62 96 08/28/20 11:30 65 12 104/55 L 97 08/28/20 11:20 68 17 94/54 L 94 08/28/20 11:10 64 12 92/51 L 98 08/28/20 11:00 36.4 C L 65 12 84/48 L 95 08/28/20 10:50 64 12 92/52 L 96 08/28/20 10:40 71 12 106/64 99 08/28/20 10:30 68 16 113/57 L 99 08/28/20 10:20 66 12 103/58 L 98 08/28/20 10:10 63 12 87/51 L 98 08/28/20 10:07 36.2 C L 63 12 87/51 L 98 08/28/20 10:00 65 12 87/56 L 98 08/28/20 06:49 36.6 C 75 18 147/80 H 96 Pain Intensity Neck: Pain Intensity: 3 Transfer of Care Handoff Completed per policy Notes Mental Status: alert / awake / arousable Patient Amnestic to Procedure: Yes Nausea / Vomiting: adequately controlled Pain: adequately controlled Airway Patency, RR, SpO2: stable & adequate BP & HR: stable & adequate Hydration State: stable & adequate Anesthetic Complications: no major complications apparent
[2020-08-28] MEDS: SODIUM CHLORIDE 0.9% 1000ML 1,000 ML IV SCH ×2 (13:49→22:36)
[2020-08-28] MEDS: CLINDAMYCIN 600 MG in DEXTROSE 5% 50 ML IV SCH ×2 (14:51→22:30)
[2020-08-28] MEDS: DOCUSATE SODIUM 100 MG CAP PO SCH (20:25)
[2020-08-28] MEDS: METOPROLOL SUCC 50MG EXT REL TAB PO SCH (20:26)
[2020-08-28] MEDS ORDERED: lisinopril 20 MG TAB PO SCH (21:00)
[2020-08-28] MEDS ORDERED: AMITRIPTYLINE HCL 50 MG TAB PO SCH (21:00)
[2020-08-28] MEDS ORDERED: DOCUSATE SODIUM/SENNA 50/8.6MG TAB PO SCH (21:00)
[2020-08-28] MEDS ORDERED: MELATONIN 3 MG TAB PO SCH (21:00)
[2020-08-28] MEDS ORDERED: TERAZOSIN HCL 1 MG CAP PO SCH (21:00)
[2020-08-29] MEDS ORDERED: POLYETHYLENE (MIRALAX) 17 GM PACK PO SCH (06:00)
[2020-08-29 06:42] LABS: Basophils # (auto) 0.01 K/uL (0-0.2); Basophils % (auto) 0.2 %; Eosinophils # (auto) 0.15 K/uL (0-0.5); Eosinophils % (auto) 2.7 %; Hematocrit (blood only) 36.5 % (42-52); Hemoglobin 11.8 g/dL (14.0-18.0); Immature Granulocytes # (auto) 0.02 K/uL (0.00-0.02); Immature Granulocytes % (auto) 0.4 %; Lymphocytes # (auto) 0.75 K/uL (1.2-3.4); Lymphocytes % (auto) 13.7 %; Mean Corpuscular Hemoglobin 27.9 pg (25-34); Mean Corpuscular Hgb Conc 32.3 g/dL (32-36); Mean Corpuscular Volume 86.3 fL (80-100); Mean Platelet Volume 9.7 fL (7.4-10.4); Monocytes # (auto) 0.52 K/uL (0.11-0.59); Monocytes % (auto) 9.5 %; Neutrophils # (auto) 4.03 K/uL (1.4-6.5); Neutrophils % (auto) 73.5 %; Platelet Count 128 K/uL (130-400); RDW Coefficient of Variation 13.7 % (11.5-14.5); RDW Standard Deviation 42.8 fL (36.4-46.3); Red Blood Count 4.23 M/uL (4.7-6.1); White Blood Count 5.48 K/uL (4.8-10.8)
--- NOTE | 2020-08-29 06:50 | Hospitalist Progress Note ---
Date of Service August 29, 2020 Assessment & Plan (1) Cervical stenosis of spinal canal: Plan: - S/p elective C5-C7 anterior discectomy and fusion, C6 corpectomy, by Dr. Celaya, POD #1. - Pain management, bowel regimen and DVT ppx per the primary team - PT/OT consults - Follow am CBC to monitor for acute blood loss, monitor JUAN drain outs - JUAN drain removed today (08/29) - Pt lives at home with who will be able to assist him after discharge. Acute blood loss anemia, post-op and dilutional Preop hemoglobin around 14, now down to 11.8 Expected No symptoms such as chest pain, dizziness lightheadedness, no need for blood transfusion (2) Paroxysmal atrial fibrillation: Plan: -Rate controlled with digoxin 125 mcg daily, metoprolol succinate 50 mg BID, patient takes baby aspirin daily. (3) HTN (hypertension): Plan: -Continue metoprolol, HCTZ and lisinopril as ordered (4) HLD (hyperlipidemia): Plan: -Not on statin therapy (5) Anxiety: Plan: -Continue Cymbalta 20 mg daily, lorazepam as needed (6) Depression: Plan: -As above DVT prophylaxis: - teds, scds, baby aspirin Dispo: From home, likely to remain in the hospital x 1-2 days Thank you for involving us in the care of Mr. Garcia. Please contact us with questions or concerns. At this time medicine service will follow along. Admission and Anticipated Discharge Date Admission Date: August 28, 2020 Subjective Patient seen in follow-up, medical consultation, post-op. Currently sitting up in the chair, in no acute distress Says he had a good night, denies any chest pain, fevers shortness of breath He needed a straight cath yesterday however currently voiding without difficulty Passing flatus Plan to discharge later today Review of Systems Review of Systems: All systems reviewed, negative, unless as above Physical Exam Physical Exam: General: awake, alert, no apparent distress Head: Normocephalic, atraumatic ENT: PERRL, EOMI, no pharyngeal exudate, mucous membranes moist, + anterior dressing C/D/I Chest: Clear to auscultation, on RA, no adventitious breath sounds Cardiac: Regular rate and rhythm, + murmur, no JVD, normal peripheral pulses, good capillary refill Abdominal: NABS x 4 quadrants, soft, nondistended, nontender to palpation, no rebound or guarding Extremities: Normal inspection, no peripheral edema or erythema, calves nontender to palpation Psych: Normal mood and affect Neuro: AAO x 3, strength intact bilaterally and rated 5/5, no motor deficits, speech is clear, no peripheral sensory deficits Results & Data Results & Data ([facility]) Vital Signs (Past 12 Hours) Vital Signs Temp Pulse Resp BP Pulse Ox 08/29/20 06:28 86 15 137/74 100 08/29/20 03:11 74 16 100 08/29/20 03:00 36.5 C 67 15 153/78 H 97 08/29/20 01:00 36.4 C L 79 15 152/76 H 97 08/28/20 23:00 36.4 C L 71 17 147/77 H 95 08/28/20 22:31 36.4 C L 68 16 139/74 96 08/28/20 22:01 64 18 94 08/28/20 19:00 78 16 94 Laboratory Results 08/29/20 08/29/20 08/28/20 Range/Units 05:21 05:21 06:24 WBC 5.48 (4.8-10.8) K/uL RBC 4.23 L (4.7-6.1) M/uL Hgb 11.8 L (14.0-18.0) g/dL Hct 36.5 L (42-52) % MCV 86.3 (80-100) fL MCH 27.9 (25-34) pg MCHC 32.3 (32-36) g/dL RDW Std Deviation 42.8 (36.4-46.3) fL RDW Coeff of Tito 13.7 (11.5-14.5) % Plt Count 128 L (130-400) K/uL MPV 9.7 (7.4-10.4) fL Immature Gran % (Auto) 0.4 % Neut % (Auto) 73.5 % Lymph % (Auto) 13.7 % [place] % (Auto) 9.5 % Eos % (Auto) 2.7 % Baso % (Auto) 0.2 % Neut # (Auto) 4.03 (1.4-6.5) K/uL Lymph # (Auto) 0.75 L (1.2-3.4) K/uL [place] # (Auto) 0.52 (0.11-0.59) K/uL Eos # (Auto) 0.15 (0-0.5) K/uL Baso # (Auto) 0.01 (0-0.2) K/uL Immature Gran # (Auto) 0.02 (0.00-0.02) K/uL Sodium 138 (136-145) mmol/L Potassium 4.3 (3.5-5.1) mmol/L Chloride 105 (98-107) mmol/L Carbon Dioxide 33 H (21-32) mmol/L Anion Gap 0 L (3-11) BUN 18 (7-18) mg/dl Creatinine 0.88 (0.6-1.4) mg/dl Est Cr Clr Drug Dosing 99.2 ml/min Est GFR ( Amer) 102.3 ml/min Est GFR (Non-Af Amer) 88.3 ml/min BUN/Creatinine Ratio 20.6 H (10-20) Glucose 102 H (70-99) mg/dl Calcium 8.4 L (8.5-10.1) mg/dl Magnesium 1.9 (1.8-2.4) mg/dl Blood Type A Negative Antibody Screen NEGATIVE Medications Administered Current Inpatient Medications Acetaminophen (Acetaminophen 500 Mg Tab) 1,000 mg PO Q8H PRN PRN Reason: MILD Pain Scale 1,2,3 & Pre PT Stop: 09/27/20 12:00 Al Hydrox/Mg Hydrox/Simethicone (Aluminum/Magnesium Susp 30 Ml Udc) 30 ml PO Q6H PRN PRN Reason: Dyspepsia Stop: 09/27/20 12:00 Amitriptyline HCl (Amitriptyline Hcl 50 Mg Tab) 150 mg PO HS OBED Stop: 09/27/20 20:59 Last Admin: 08/28/20 20:25 Dose: 150 mg Documented by: Aspirin (Aspirin 81 Mg Ectab) 81 mg PO QAM OBED Stop: 09/28/20 08:59 Last Admin: 08/29/20 07:32 Dose: 81 mg Documented by: Bisacodyl (Bisacodyl 10 Mg Supp) 10 mg HI DAILY PRN PRN Reason: Constipation Stop: 09/29/20 07:59 Cyanocobalamin (Cyanocobalamin 500 Mcg Tablet (Vitamin B-12)) 500 mcg PO [facility] Stop: 09/28/20 08:59 Last Admin: 08/29/20 07:31 Dose: 500 mcg Documented by: Digoxin (Digoxin 0.125 Mg Tab) 0.125 mg PO DAILY@1600 [facility] Stop: 09/28/20 15:59 Diphenhydramine HCl (Diphenhydramine Capsule 25 Mg Cap) 25 mg PO Q6H PRN PRN Reason: Allergic Rhinitis/Insomnia Stop: 09/27/20 12:00 Docusate Sodium (Docusate Sodium 100 Mg Cap) 100 mg PO BID [facility] Stop: 09/27/20 20:59 Last Admin: 08/29/20 07:32 Dose: 100 mg Documented by: Duloxetine HCl (Duloxetine Hcl 20 Mg Cap) 20 mg PO [facility] Stop: 09/28/20 08:59 Last Admin: 08/29/20 07:32 Dose: 20 mg Documented by: Epinephrine (Racepinephrine 2.25% Nebu Soln 0.5 Ml Vial) 0.5 ml INH NOW PRN PRN Reason: if stridor present Famotidine (Famotidine 20 Mg Tab) 20 mg PO Q12H PRN PRN Reason: Dyspepsia Stop: 09/27/20 12:00 Hydrochlorothiazide (Hydrochlorothiazide 25 Mg Tab) 25 mg PO [facility] Stop: 09/28/20 08:59 Hydromorphone HCl (Hydromorphone Inj 0.5 Mg/0.5 Ml Syr) 0.5 mg IV Q3H PRN PRN Reason: MOD pain (scale 4-6) & Pre PT Stop: 09/11/20 12:00 Hydromorphone HCl (Hydromorphone Inj 1 Mg/Ml Syringe) 1 mg IV Q3H PRN PRN Reason: severe pain (scale 7-10) Stop: 09/11/20 12:00 Hydroxyzine HCl (Hydroxyzine Hcl 25 Mg Tab) 25 mg PO Q8H PRN PRN Reason: Anxiety Stop: 09/27/20 12:00 Dexamethasone 8 mg/ Syringe 2 mls @ 1 mls/min IV NOW PRN PRN Reason: stridor Promethazine HCl 12.5 mg/ (Sodium Chloride) 50.5 mls @ 202 mls/hr IV Q6H PRN PRN Reason: Nausea &/or Vomiting Stop: 09/27/20 12:00 Acetaminophen (Ofirmev) 1,000 mg in 100 mls @ 400 mls/hr IV Q8H PRN PRN Reason: Pain Rating 1-3 & Pre PT Stop: 08/31/20 12:00 Lorazepam (Ativan) 0.5 mg in 1 mls @ 1 mls/min IV Q8H PRN PRN Reason: Sedation/Anxiety Stop: 09/27/20 12:00 Influenza Virus Vaccine Quadrival (Do Not Administer Flu Vaccine) 1 ea N/A PRN PRN PRN Reason: Notification Stop: 09/27/20 12:00 Lisinopril (Lisinopril 20 Mg Tab) 20 mg PO BID [facility] Stop: 09/27/20 20:59 Lorazepam (Lorazepam 0.5 Mg Tab) 0.5 mg PO Q8H PRN PRN Reason: sedation/anxiety Stop: 09/27/20 12:00 Magnesium Hydroxide (Magnesium Hydroxide Susp 30 Ml Udc) 30 ml PO Q24H PRN PRN Reason: Constipation Stop: 09/27/20 12:00 Melatonin (Melatonin 3 Mg Tab) 3 mg PO HS [facility] Stop: 09/27/20 20:59 Last Admin: 08/28/20 20:24 Dose: 3 mg Documented by: Metoclopramide HCl (Metoclopramide Hcl Inj 5 Mg/Ml 2 Ml Vial) 10 mg IV Q6H PRN PRN Reason: Nausea &/or Vomiting Stop: 09/27/20 12:00 Metoprolol Succinate (Metoprolol Succ 50mg Ext Rel Tab) 50 mg PO BID OBED Stop: 09/27/20 20:59 Last Admin: 08/29/20 07:31 Dose: 50 mg Documented by: Naloxone HCl (Naloxone Hcl 0.4 Mg/1 Ml Vial/Carp) 0.1 mg IV Q5M PRN PRN Reason: Oversedation/respiratory dep Stop: 09/27/20 12:00 Ondansetron HCl (Ondansetron Inj 2 Mg/Ml 2 Ml Vial) 4 mg IV Q6H PRN PRN Reason: Nausea &/or Vomiting Stop: 09/27/20 12:00 Ondansetron HCl (Ondansetron 4 Mg Od Tab) 4 mg PO Q6H PRN PRN Reason: Nausea Stop: 08/21/21 12:00 Oxycodone HCl (Oxycodone Hcl Ir 5 Mg Tab (Immediate Release)) 5 - 10 mg PO Q4H PRN PRN Reason: Pain & Pre PT Stop: 09/11/20 12:00 Pneumococcal Polyvalent Vaccine (Do Not Administer Pneumococcal Vaccine) 1 ea N/A PRN PRN PRN Reason: Notification Stop: 09/27/20 12:00 Polyethylene Glycol (Polyethylene (Miralax) 17 Gm Pack) 17 gm PO Q6 [facility] Stop: 09/28/20 05:59 Last Admin: 08/29/20 05:46 Dose: 17 gm Documented by: Psyllium Hydrophilic Mucilloid (Psyllium 58.6% Powder Packet) 1 pkt PO QAM [facility] Stop: 09/28/20 08:59 Last Admin: 08/29/20 07:31 Dose: 1 pkt Documented by: Senna/Docusate Sodium (Docusate Sodium/Senna 50/8.6mg Tab) 2 tab PO HS [facility] Stop: 09/27/20 20:59 Last Admin: 08/28/20 20:25 Dose: 2 tab Documented by: Sodium Biphosphate/Sodium Phosphate (Sod Phosphate/Sod Biphosphate Enema 132 Ml Btl) 132 ml HI ONE PRN PRN Reason: Constipation Stop: 09/27/20 12:00 Terazosin HCl (Terazosin Hcl 1 Mg Cap) 2 mg PO HS [facility] Stop: 09/27/20 20:59 Last Admin: 08/28/20 20:24 Dose: 2 mg Documented by: Tramadol HCl (Tramadol Hcl 50 Mg Tablet) 50 - 100 mg PO Q4H PRN PRN Reason: Moderate-Severe pain & Pre PT Stop: 09/27/20 12:00
[2020-08-29 07:07] LABS: BUN Creatinine Ratio 20.6 (10-20); Calcium 8.4 mg/dl (8.5-10.1); Creatinine Clr Calc Pharmacy 99.2 ml/min; Est GFR (African American) 102.3 ml/min; Est GFR (Non-African American) 88.3 ml/min; Magnesium 1.9 mg/dl (1.8-2.4); Potassium 4.3 mmol/L (3.5-5.1)
[2020-08-29] MEDS: METOPROLOL SUCC 50MG EXT REL TAB PO SCH (07:31)
[2020-08-29] MEDS: DOCUSATE SODIUM 100 MG CAP PO SCH (07:32)
[2020-08-29] MEDS ORDERED: PSYLLIUM 58.6% POWDER PACKET PO SCH (09:00)
[2020-08-29] MEDS ORDERED: CYANOCOBALAMIN 500 MCG TABLET (VITAMIN B-12) PO SCH (09:00)
[2020-08-29] MEDS ORDERED: hydroCHLOROthiazide 25 MG TAB PO SCH (09:00)
[2020-08-29] MEDS ORDERED: ASPIRIN 81 MG ECTAB PO SCH (09:00)
[2020-08-29] MEDS ORDERED: DULoxetine HCL 20 MG CAP PO SCH (09:00)
--- NOTE | 2020-08-29 12:13 | Discharge Summary ---
Date of Service August 29, 2020 Admission HPI Per Admitting Provider This is a 62-year-old male presents with current persistent neck and arm pain. Failing course of nonoperative care is here for surgical invention. Principal Diagnosis Cervical spinal stenosis with radiculopathy Discharge Data Allergies Allergy/AdvReac Type Severity Reaction Status Date / Time amoxicillin Allergy Intermediate Depression Verified 08/28/20 06:33 Consultations 08/28/20 12:01 Consult Hospitalist Routine Procedures Performed Operation Date: 08/28/20 07:45 Actual Procedures p C5-C7 Anterior Cervical Discectomy Fusion, C6 Corpectomy, Spinal Cord Monitoring(Not Applicable) - Luis Daniel Celaya DO Ordered Studies 08/28/20 07:45 FL cervical 2-3V Routine Hospital Course (1) Cervical stenosis of spinal canal: Patient went anterior cervical corpectomy and fusion cholecystectomy orthopedic for postop labor postop and running swallowing well no hoarseness arm symptoms markedly improved. Excellent strength testing. JUAN drain decreasing appropriately. Subsequent discharge home. Discharge orders instructions from the chart for further review. Total Time Total Time Spent Total Time Spent (In Minutes): 20 minutes Discharge Plan Discharge Items Patient Disposition: Home - Self-Care Reason For Visit: Spinal Stenosis, Cervical Region Discharge Diagnosis: Cervical spinal stenosis with radiculopathy Activity: As commented below Non-emergency contact: Primary Care Provider Call non-emergency contact if: you have any medication questions Follow-up/Referrals: Eve Hansen DO [Primary Care Provider] - Diet: Regular Addtl Attending Provider Instructions: ACTIVITY RECOMMENDATIONS: SELF CARE INSTRUCTIONS AFTER CERVICAL FUSIONS 1. No smoking. Smoking drastically decreases the chance of a solid fusion. 2. No bending, lifting more than 5 pounds, or twisting (roll like a log when turning in bed). 3. You may shower 3 days after surgery. Thoroughly dry wound. Do not soak in the tub. 4. Cervical collar: Must be worn at all times including sleeping. You may remove the brace only to bath, eat and if you are sitting in a recliner. 5. Please walk as much as you can for exercise. Gradually increase the distance that you walk as your endurance increases. SPECIAL CARE INSTRUCTIONS: VERY IMPORTANT TO READ AND REVIEW A. Do not take any anti-inflammatory medications (i.e. Indocin, Advil, Aspirin, Naprosyn, Aleve, Motrin, etc.) as these may inhibit the chance of a solid fusion. Tylenol is okay to take. B. Your surgical incision has been closed with a cosmetic suture under the skin that will dissolve in about 6 weeks. In 14 days, you can use a pair of clean scissors and cut the suture that is left outside of the skin at the ends of your incision. C. Complications are uncommon, but please contact us if you have any signs or symptoms of: 1. wound infection (fever higher than 102.5 degrees F, redness, separation of wound, drainage, or increasing pain from the incision) 2. blood clots in legs (pain, swelling, redness and warmth in legs) 3. urinary tract infection (fever higher than 102.5 degrees, burning upon urination or increased frequency of urination) 4. nerve problems (inability to walk on your toes or heels, numbness, loss of bowel or bladder control) 5. any other symptoms that concern you. D. Please call the office at if you have any concerns or questions about your operation or recovery. MANAGING PAIN AFTER SPINAL SURGERY 1. Narcotic medication is intended for short-term use and will be provided for surgical pain. Surgical pain usually lasts for a period of 4-6 weeks. Narcotic medication includes Percocet, Vicodin, Darvocet, Tylenol #3 or Lortab. 2. Longer-term pain is more appropriately treated with non-narcotic medication such as Tylenol ES. 3. Muscle spasm is not appropriately treated with narcotics. Muscle relaxers such as Soma, Flexeril or Skelaxin can be used along with Tylenol ES. 4. Remember that we all live with some "aches and pains". This is not unusual or uncommon after an injury or as we get older. 5. We will provide appropriate medication within the normal guidelines of their prescribed use. We will also be very cautious and aware of potential abuse and extended duration of patients' medication needs. 6. Please allow 2-3 days to process refills. Prescriptions will not be mailed but must be picked up at the office. FOLLOW UP VISIT: Keep your scheduled follow-up appointment. Any questions, please call the office at . Pending Studies at Discharge: No Stand-Alone Forms: [facility] [employer], Smoking Cessation Medications and DC Order Prescriptions: New tramadol 50 mg tablet 50 mg PO Q6H PRN (Reason: pain, moderate) Qty: 20 RF: 0 oxycodone 5 mg tablet 5 mg PO Q6H PRN (Reason: pain, severe) Qty: 20 RF: 0 Continued lisinopril 20 mg Tablet 20 mg PO BID RF: 0 metoprolol succinate 100 mg Tablet Extended Release 24 Hr 50 mg PO BID RF: 0 aspirin 81 mg Tablet,Delayed Release (Dr/Ec) 81 mg PO QAM RF: 0 amitriptyline 50 mg Tablet 150 mg PO HS RF: 0 lorazepam 0.5 mg Tablet 0.5 mg PO DAILY PRN (Reason: Anxiety) RF: 0 cyanocobalamin (vitamin B-12) 500 mcg Tablet 500 mcg PO QAM RF: 0 terazosin 2 mg Capsule 2 mg PO HS RF: 0 docusate sodium [Dulcolax Stool Softener (dss)] 100 mg Capsule 100 mg PO BID RF: 0 hydrochlorothiazide 25 mg Tablet 25 mg PO QAM RF: 0 digoxin 125 mcg (0.125 mg) Tablet 125 mcg PO QAM RF: 0 tadalafil [Cialis] 20 mg Tablet 10 mg PO DAILY PRN (Reason: .) RF: 0 duloxetine 20 mg Capsule,Delayed Release(Dr/Ec) 20 mg PO QAM RF: 0 hydrocodone-acetaminophen 5-300 mg Tablet 1 tab PO BID PRN (Reason: Pain) RF: 0 red yeast rice 600 mg Capsule 1,200 mg PO QAM RF: 0 psyllium husk [Metamucil] 0.4 gram Capsule 0.8 g PO QAM RF: 0 melatonin 3 mg Capsule 3 mg PO HS RF: 0 Discharge Orders: Discharge Order (Routine); Ordered 08/29/20 Ordered By: Luis Daniel Celaya Admission Data Admit Date/Time: 08/28/20 09:54 Attending Provider: Luis Daniel Celaya Admit Provider: Luis Daniel Celaya Primary Care Provider: Eve Hansen Other Providers: Rey Mcclendon
[2020-08-29] MEDS ORDERED: DIGOXIN 0.125 MG TAB PO SCH (16:00)
[2020-08-30] MEDS ORDERED: bisacodyL 10 MG SUPP PR PRN (08:00)
== END 2020-08-29 13:37 | disposition home or self-care (01) ==
LOC: ASU 05:59 → 3E 09:54 → INTOOBSV 09:54